=== PATIENT | male | born 1965 | race Caucasian/White ===

== ENCOUNTER 2018-05-05 13:12 | Outpatient (CLI) | payer BC ==
--- NOTE | 2018-05-05 15:25 | HP ---
HISTORY OF PRESENT ILLNESS: Mr. Juan M Lou is a very pleasant 53-year-old gentleman, who presents to [facility] for evaluation of multiple venous ulcerations of the right lower leg. The patient states that he has had venous ulcerations present on an intermittent basis for the past 2 to 3 years. He states that the ulcerations have mostly occurred over the right lower leg. He states that he believes the ulcerations were associated with beginning medication for hypertension. The patient states that usually he notes the presence of blisters, which pop and then developed eschars before healing completely. He states that the ulcerations now present have failed to improve over the past 3-1/2 weeks. He also reports copious drainage associated with the ulcerations. The patient reports the development of some of the ulcerations secondary to minor trauma while taking off his socks. The patient states he has been treating the ulcerations with the application of an antibiotic ointment followed by secondary dressings. The patient was referred to the [facility] by Dr. Rosales on 04/27/2018. PAST MEDICAL HISTORY: 1. Hypertension. 2. Atrial fibrillation. PAST SURGICAL HISTORY: 1. Gastric bypass in 2002. 2. Herniorrhaphy. 3. Upper extremity surgery in the . MEDICATIONS: 1. Eliquis. 2. Hydrochlorothiazide. 3. Losartan. 4. Coreg. ALLERGIES: NO KNOWN DIAGNOSED ALLERGIES. SOCIAL HISTORY: Social history significant for tobacco use on an intermittent basis for the past 40 years. The patient states he has smoked up to 1-1/2 packs of cigarettes per day over this period of time. The patient admits to only the occasional consumption of alcohol. FAMILY HISTORY: Family history is negative for diabetes mellitus or coronary artery disease. PHYSICAL EXAMINATION: VITAL SIGNS: Temperature 97.5, pulse 83, and blood pressure 169/95. GENERAL: A 53-year-old gentleman, sitting on table in examination room, in no acute distress. HEENT: Normocephalic, atraumatic. NECK: No nuchal rigidity. CHEST: Clear to auscultation. CARDIOVASCULAR: Regular rate and rhythm. ABDOMEN: Soft. EXTREMITIES: Multiple venous ulcerations are present over the right lower leg. No purulent drainage is associated with any of the wounds. No erythema of the skin surrounding any of the wounds is present. No maceration of the skin of the periwound of any of the wounds is noted. A dorsalis pedis pulse is easily palpable on the right. Edema of the right foot and lower leg is present on exam today. Hyperpigmentation of the skin of the right and left lower legs is present secondary to hemosiderin deposition. NEURO: Grossly nonfocal. ASSESSMENT AND PLAN: 1. Chronic venous hypertension with ulcers, Xeroform gauze, ABDs, and the 3M Coban 2 Layer Compression System will be applied to the ulcerations today. The patient is to return to the Wound Center in 1 week for a dressing change. I will see Mr. Lou again in 2 weeks. No antibiotics will be prescribed today based upon the appearance of the wounds. The patient states he will be seeing his applications developer, Dr. Sam Hoffman in the near future. The patient states he will discuss evaluation for venous ablation or iliac vein stenting with Dr. Hoffman at this time. The patient understands and is in agreement with the preceding treatment plan. He states he will return to the Wound Center in 2 weeks. 2. Hypertension. 3. Atrial fibrillation. Job ID: [id number]
[2018-05-05] MEDS ORDERED: Sodium Chloride 0.9% 15 ML NEB ONE (18:00)
== END 2018-05-05 13:13 | disposition home or self-care (01) ==
LOC: WCC 13:12
PROVIDERS: ATTEND Family Medicine
DX: I87.311 Chronic venous hypertension (idiopathic) with ulcer of right lower extremity (principal); L97.919 Non-pressure chronic ulcer of unspecified part of right lower leg with unspecified severity; I10 Essential (primary) hypertension; I48.91 Unspecified atrial fibrillation
CPT/HCPCS: 99203; A4218; G0463

== ENCOUNTER 2018-05-12 09:49 | Outpatient (CLI) | payer BC ==
[2018-05-12] MEDS ORDERED: Sodium Chloride 0.9% 15 ML NEB ONE (16:48)
== END 2018-05-12 09:50 | disposition home or self-care (01) ==
LOC: WCC 09:49
PROVIDERS: ATTEND Family Medicine
DX: I87.311 Chronic venous hypertension (idiopathic) with ulcer of right lower extremity (principal); L97.919 Non-pressure chronic ulcer of unspecified part of right lower leg with unspecified severity
CPT/HCPCS: 29581; A4218

== ENCOUNTER 2018-05-19 14:32 | Outpatient (CLI) | payer BC ==
[~2018-05-19 14:32] MED LIST: Sodium Chloride 0.9% 15 ML NEB ONE
--- NOTE | 2018-05-19 16:06 | PRG ---
DATE OF SERVICE: 05/19/2018 SUBJECTIVE: Mr. Juan M Lou is a very pleasant 53-year-old gentleman, who presents to the [facility] for evaluation of multiple venous ulcerations of the right lower leg. At the time of the patient's initial presentation to the [facility] Center, Mr. Lou stated that he has had venous ulcerations present on an intermittent basis for the past 2 to 3 years. He stated that the ulcerations mostly occurred over the right lower leg. He stated that he believed the ulcerations were associated with beginning medication for hypertension. He stated that he usually noted the presence of blisters which popped and then developed eschars before healing completely. He stated that the ulcerations with which he presented to the Wound Center had failed to improve over the previous 3-1/2 weeks. He also reported copious drainage associated with the ulcerations. The patient also reported the development of some of the ulcerations secondary to minor trauma while taking off his socks. The patient stated he had been treating the ulcerations with the application of an antibiotic ointment followed by secondary dressings prior to being seen in the Wound Center. The patient was referred to the Wound Center by Dr. Rosales on 04/27/2018. After being seen in the Wound Center, the ulcerations were treated with the application of Xeroform gauze, ABDs, and the 3M Coban 2 Layer Compression System. OBJECTIVE: VITAL SIGNS: Temperature 97.4, pulse 69, respirations 18, and blood pressure 169/79. EXTREMITIES: Multiple superficial venous ulcerations are present over the right lower leg. These ulcerations have markedly improved in their appearance since the patient's initial presentation to the Wound Center. No purulent drainage is associated with any of the wounds. No erythema of the skin surrounding any of the wounds is present. No maceration of the skin of the periwound of any of the wounds is noted. Less edema of the right foot and lower leg is present on exam today than at the time of the patient's initial presentation to the Wound Center. Hyperpigmentation of the skin of the right and left lower legs is present secondary to hemosiderin deposition. ASSESSMENT AND PLAN: 1. Chronic venous hypertension with ulcers. Xeroform gauze, [place], and the 3M Coban 2 Layer Compression System will be applied to the ulcerations today. I will see Mr. Helquist again in 1 week. Arrangements will be made for the home delivery of compression garments in conjunction with wraparound compression. The patient has been asked to bring both to his followup visit to the Wound Center in 1 week. The patient states he understands and is in agreement with the preceding treatment plan. 2. Hypertension. 3. Atrial fibrillation. Job ID: [id number]
== END 2018-05-19 14:33 | disposition home or self-care (01) ==
LOC: WCC 14:32
PROVIDERS: ATTEND Family Medicine
DX: I87.311 Chronic venous hypertension (idiopathic) with ulcer of right lower extremity (principal); L97.919 Non-pressure chronic ulcer of unspecified part of right lower leg with unspecified severity; I10 Essential (primary) hypertension; I48.91 Unspecified atrial fibrillation
CPT/HCPCS: 97602; A4218

== ENCOUNTER 2019-03-15 15:18 | Outpatient (CLI) | payer BC ==
--- NOTE | 2019-03-15 15:54 | RAD ---
LEFT KNEE 3 VIEWS: HISTORY: Pain in the left knee. FINDINGS: There are degenerative changes most prominent in the medial tibial femoral and patellofemoral compart ments. No fracture, dislocation, or bony destruction is seen. IMPRESSION: Left knee osteoarthritis. POS: [facility]
--- NOTE | 2019-03-15 15:55 | RAD ---
RIGHT KNEE 3 VIEWS: HISTORY: Right knee pain. FINDINGS: There are degenerative changes most prominent in the medial tibial femoral and patellofemoral compart ments. No fracture, dislocation, or bony destruction is seen. IMPRESSION: Right knee osteoarthritis. POS: [facility]
== END 2019-03-15 15:19 | disposition home or self-care (01) ==
LOC: BICRAD 15:18
PROVIDERS: ATTEND Family Medicine
DX: M25.561 Pain in right knee (principal); M25.562 Pain in left knee; M17.0 Bilateral primary osteoarthritis of knee

== ENCOUNTER 2021-03-28 12:40 | Emergency (ER) | payer BC ==
[2021-03-28 14:33] LABS: %Neutrophils 76.1 % (42.0-75.0); Hemoglobin 10.2 g/dL (14.0-18.0); Mean Corpuscular HGB CONC 31.3 g/dL (32.0-36.0); Mean Corpuscular Hemoglobin 31.7 pg (27.0-31.0); Mean Platelet Volume 8.3 fL (7.4-10.4); Platelet Count 214 thou/uL (130-400); RBC Distribution Width 17.7 % (11.5-14.5); Red Blood Cell (RBC) Count 3.23 mill/uL (4.70-6.10); White Blood Cell (WBC) Count 8.3 thou/uL (4.8-10.8)
[2021-03-28 14:34] LABS: #Eosinphils 0.1 thou/uL (0.0-0.7); #Lymphocytes 1.1 thou/uL (1.20-3.40); #Monocytes 0.8 thou/uL (0.11-0.59); #Neutrophils 6.3 thou/uL (1.40-6.50); %Basophils 0.1 % (0.0-1.0); %Eosinophils 0.9 % (0.0-10.0); %Lymphocytes 13.5 % (21.0-51.0); %Monocytes 9.3 % (0.0-10.0)
[2021-03-28 15:02] LABS: ALT (SGPT) 22 U/L (8-55); AST (SGOT) 35 U/L (5-34); Albumin 3.4 g/dL (3.5-5.0); Alkaline Phosphatase 75 U/L (40-110); Anion Gap 15 mmol/L (10-20); BUN (Urea Nitrogen) 10 mg/dL (8.4-25.7); Bilirubin, Total 1.4 mg/dL (0.2-1.2); Calc. Creatinine Clearance 0 mL/min (70-130); Calcium 8.8 mg/dL (7.8-10.44); Carbon Dioxide 29 mmol/L (22-29); Chloride 102 mmol/L (98-107); Globulin 3.4 g/dL (2.4-3.5); Glucose 114 mg/dL (70-105); Lipase 10 U/L (8-78); Potassium 4.7 mmol/L (3.5-5.1); Protein, Total 6.8 g/dL (6.0-8.3); Sodium 141 mmol/L (136-145)
== END 2021-03-28 18:59 | disposition home or self-care (01) ==
LOC: ERS 12:40
DX: R07.89 Other chest pain (principal); I10 Essential (primary) hypertension; I48.91 Unspecified atrial fibrillation; E66.9 Obesity, unspecified; Z87.891 Personal history of nicotine dependence
CPT/HCPCS: 36415; 71045; 80053; 83690; 83880; 84484; 85025; 93005; 94760

== ENCOUNTER 2021-08-19 20:42 | Inpatient (IN) | payer BC ==
[2021-08-19 21:21] LABS: Analyzer IN Cardio ER; Base Excess 3.5 mEq/L (-2.0 to +3.0); Calcium, Ionized (venous) 1.04 mmol/L (1.16-1.32); Chloride (VBG) 103 mmol/L (98-106); Potassium (VBG) 5.11 mmol/L (3.70-5.30); Sodium 141.8 mmol/L (133-146); pH (venous) 7.29 (7.32-7.43)
[2021-08-19 21:27] LABS: Actual Bicarbonate (HCO3v) 32 mEq/L (22-28)
[2021-08-19 21:31] LABS: Hemoglobin 13.3 g/dL (14.0-18.0); Mean Corpuscular HGB CONC 29.3 g/dL (32.0-36.0); Mean Corpuscular Hemoglobin 28.6 pg (27.0-31.0); Mean Corpuscular Volume 97.6 fL (78.0-98.0); Mean Platelet Volume 8.9 fL (7.4-10.4); Platelet Count 211 thou/uL (130-400); RBC Distribution Width 18.4 % (11.5-14.5); Red Blood Cell (RBC) Count 4.65 mill/uL (4.70-6.10); White Blood Cell (WBC) Count 6.1 thou/uL (4.8-10.8)
[2021-08-19 21:32] LABS: ALT (SGPT) 16 U/L (8-55); AST (SGOT) 28 U/L (5-34); Albumin 3.4 g/dL (3.5-5.0); Alkaline Phosphatase 88 U/L (40-110); Anion Gap 13 mmol/L (10-20); BUN (Urea Nitrogen) 21 mg/dL (8.4-25.7); Bilirubin, Total 1.3 mg/dL (0.2-1.2); CRP (Inflammatory) 6.66 mg/dL (= or < 0.5); Calc. Creatinine Clearance 0 mL/min (70-130); Carbon Dioxide 33 mmol/L (22-29); Chloride 103 mmol/L (98-107); Globulin 4.1 g/dL (2.4-3.5); Glucose 95 mg/dL (70-105); Potassium 4.4 mmol/L (3.5-5.1); Protein, Total 7.5 g/dL (6.0-8.3); Sodium 145 mmol/L (136-145)
[2021-08-19 21:33] LABS: Acetaminophen Less than 10.0 mcg/mL (10.0-30.0); Alcohol Less than 10 mg/dL (Less than 10); CK (CPK) 72 U/L (30-200); Salicylate Less than 8.0 mg/dL (15.0-30.0)
[2021-08-19 21:45] LABS: #Eosinphils 0.1 thou/uL (0.0-0.7); #Lymphocytes 0.9 thou/uL (1.20-3.40); #Monocytes 0.7 thou/uL (0.11-0.59); #Neutrophils 4.4 thou/uL (1.40-6.50); %Basophils 0.7 % (0.0-1.0); %Eosinophils 0.9 % (0.0-10.0); %Lymphocytes 14.4 % (21.0-51.0); %Monocytes 11.6 % (0.0-10.0); %Neutrophils 72.4 % (42.0-75.0)
[2021-08-19 22:26] LABS: SARS-CoV-2 NAA Rapid Test Not Detected (NotDetected)
[2021-08-19 22:38] LABS: Bacteria/HPF None Seen HPF (None Seen); Bilirubin 1+ (Negative); Blood, Urine Negative (Negative); Clarity Clear (Clear); Glucose, Urine (Dipstick) Normal (Negative); Ketone, Urine Negative (Negative); Leukocyte Negative Leu/uL (Negative); Nitrite Negative (Negative); Protein, Urine (Dipstick) 100 mg/dL (Neg-Trace); RBC/HPF 0-3 HPF (0-3); Specific Gravity, Urine 1.034 (1.002-1.036); Squamous Epithelial 0-3 HPF (0-3); WBC/HPF 0-3 HPF (0-3)
[2021-08-19 22:45] LABS: Amphetamine Not Detected (NotDetected); Barbiturates Screen Not Detected (NotDetected); Benzodiazepine Screen Not Detected (NotDetected); Cocaine Metabolite Screen Not Detected (NotDetected); Methadone Not Detected (NotDetected); Methamphetamine Not Detected (NotDetected); Opiate Screen Not Detected (NotDetected); Oxycodone Screen Not Detected (NotDetected); Phencyclidine (PCP) Not Detected (NotDetected); THC/Cannabinoid Screen Not Detected (NotDetected); Tricyclic Screen Not Detected (NotDetected)
[2021-08-20 14:58] LABS: Actual Bicarbonate (HCO3a) 36.1 mEq/L (22-28); Analyzer IN Cardio ER; Base Excess (BEa) 5.4 mEq/L (-2.0 to +3.0); Calcium, Ionized (arterial) 1.19 mmol/L (1.12-1.30); Carboxyhemoglobin (COHb) 1.2 gm% (0.0-3.0); Hemoglobin (Hb) 12.8 g/dL (14.0-18.0); O2 Tension (PaO2), arterial 73.8 mmHg (80.0-100.0); Potassium - ABG Lab 4.09 mmol/L (3.70-5.30)
[2021-08-20 14:59] LABS: ALV-art Gradient 97.775 mmHg (0-20); CO2 Tension 90.9 mmHg (35.0-45.0); Puncture Site RRA; pH, Arterial 7.22 (7.35-7.45)
[2021-08-20] MEDS ORDERED: Azithromycin 500 MG in Sodium Chloride 0.9% 250 ML 250 ML IVPB SCH (15:00)
[2021-08-20 15:43] LABS: Mean Corpuscular HGB CONC 27.9 g/dL (32.0-36.0); Mean Corpuscular Hemoglobin 27.5 pg (27.0-31.0); Mean Corpuscular Volume 98.5 fL (78.0-98.0); Mean Platelet Volume 8.9 fL (7.4-10.4); Platelet Count 184 thou/uL (130-400); RBC Distribution Width 18.1 % (11.5-14.5); Red Blood Cell (RBC) Count 4.36 mill/uL (4.70-6.10); White Blood Cell (WBC) Count 7.3 thou/uL (4.8-10.8)
[2021-08-20] MEDS ORDERED: cefTRIAXone\\ROCEPHIN 2 GM in Sodium Chloride 0.9% 100 ML IVPB SCH (16:00)
[2021-08-20 16:03] LABS: Anisocytosis SLIGHT = 6-15 cells (100X) (0-5/hpf); Band 13 % (5-11); Eosinophils 1 % (0-10); Hypochromia SLIGHT = 6-15 cells (100X) (0-5/hpf); Lymphocytes 10 % (21-51); MDiff Complete? YES; Monocytes 12 % (0-10); Neutrophil 64 % (42-75); Platelet Morphology Comment Appears Adequate; Polychromasia SLIGHT = 2-3 cells (100X) (0-2/hpf)
[2021-08-20] MEDS ORDERED: Bisacodyl 10 MG SUPP PR PRN (16:15)
[2021-08-20] MEDS ORDERED: Ondansetron ODT 4 MG TAB PO PRN (16:15)
[2021-08-20] MEDS ORDERED: Senokot S 8.6-50 MG TAB PO PRN (16:15)
[2021-08-20] MEDS ORDERED: Bisacodyl 5 MG TAB PO PRN (16:15)
[2021-08-20] MEDS ORDERED: Acetaminophen 325 MG TAB PO PRN (16:15)
[2021-08-20] MEDS ORDERED: Ondansetron PF 4 MG/2 ML Vial IVP PRN (16:15)
[2021-08-20 18:38] LABS: Hemoglobin A1c 5.9 % (4.0-6.0)
[2021-08-20] MEDS ORDERED: Furosemide 40 MG/4 ML VIAL SLOW IVP SCH (18:45)
[2021-08-20] MEDS ORDERED: Azithromycin 500 MG VIAL ONE ×2 (20:35→20:36)
[2021-08-20] MEDS ORDERED: cefTRIAXone\\ROCEPHIN 2 GM VIAL ONE (20:35)
[2021-08-20] MEDS ORDERED: Furosemide 40 MG/4 ML VIAL ONE (20:35)
[2021-08-20] MEDS ORDERED: Cefepime 2 GM VIAL ONE (20:35)
[2021-08-20] MEDS ORDERED: Apixaban 5 MG TAB PO SCH (21:00)
[2021-08-20] MEDS ORDERED: Vancomycin 1 GM in Premix Bag 1 BAG IVPB SCH (21:00)
[2021-08-20] MEDS: Cefepime 2 GM in Sodium Chloride 0.9% 100 ML IVPB SCH (21:35)
[2021-08-20] MEDS: Famotidine/PF 20 mg/2ml Vial SLOW IVP SCH (22:32)
[2021-08-20] MEDS: Famotidine 20 MG TAB PO SCH (22:56)
[2021-08-20 23:12] LABS: #Eosinphils 0.1 thou/uL (0.0-0.7); #Lymphocytes 0.6 thou/uL (1.20-3.40); #Monocytes 0.6 thou/uL (0.11-0.59); #Neutrophils 3.9 thou/uL (1.40-6.50); %Basophils 0.8 % (0.0-1.0); %Eosinophils 1.6 % (0.0-10.0); %Lymphocytes 10.9 % (21.0-51.0); %Monocytes 11.4 % (0.0-10.0); %Neutrophils 75.3 % (42.0-75.0); Hemoglobin 11.9 g/dL (14.0-18.0); Mean Corpuscular HGB CONC 28.4 g/dL (32.0-36.0); Mean Corpuscular Hemoglobin 27.9 pg (27.0-31.0); Mean Corpuscular Volume 98.5 fL (78.0-98.0); Mean Platelet Volume 9.1 fL (7.4-10.4); Platelet Count 206 thou/uL (130-400); RBC Distribution Width 18.3 % (11.5-14.5); Red Blood Cell (RBC) Count 4.26 mill/uL (4.70-6.10); White Blood Cell (WBC) Count 5.1 thou/uL (4.8-10.8)
[2021-08-20 23:34] LABS: ALT (SGPT) 18 U/L (8-55); AST (SGOT) 50 U/L (5-34); Alkaline Phosphatase 82 U/L (40-110); Anion Gap 13 mmol/L (10-20); BUN (Urea Nitrogen) 17 mg/dL (8.4-25.7); Calc. Creatinine Clearance 0 mL/min (70-130); Calcium 8.8 mg/dL (7.8-10.44); Carbon Dioxide 35 mmol/L (22-29); Chloride 101 mmol/L (98-107); Glucose 100 mg/dL (70-105); Sodium 144 mmol/L (136-145)
[2021-08-21] MEDS ORDERED: Vancomycin 1 GM in Premix Bag 1 BAG IVPB SCH (00:30)
[2021-08-21] MEDS: Cefepime 2 GM in Sodium Chloride 0.9% 100 ML IVPB SCH ×3 (04:25→20:34)
[2021-08-21 05:02] LABS: ALT (SGPT) 12 U/L (8-55); AST (SGOT) 22 U/L (5-34); Alkaline Phosphatase 78 U/L (40-110); Anion Gap 12 mmol/L (10-20); BUN (Urea Nitrogen) 15 mg/dL (8.4-25.7); Bilirubin, Direct 0.6 mg/dL (0.1-0.3); Bilirubin, Total 0.9 mg/dL (0.2-1.2); CRP (Inflammatory) 7.05 mg/dL (= or < 0.5); Calc. Creatinine Clearance 437 mL/min (70-130); Calcium 8.5 mg/dL (7.8-10.44); Carbon Dioxide 37 mmol/L (22-29); Chloride 102 mmol/L (98-107); Cholesterol 84 mg/dl (< 200 Desired); Glucose 114 mg/dL (70-105); HDL Cholesterol 28 mg/dL (>60 Neg Risk); LDL Cholesterol, Calculated 43 mg/dL; Magnesium 1.7 mg/dL (1.6-2.6); Potassium 3.9 mmol/L (3.5-5.1); Protein, Total 6.8 g/dL (6.0-8.3); Sodium 147 mmol/L (136-145); Triglycerides 65 mg/dL (Less than 150)
[2021-08-21 05:10] LABS: #Eosinphils 0.1 thou/uL (0.0-0.7); #Lymphocytes 0.5 thou/uL (1.20-3.40); #Monocytes 0.8 thou/uL (0.11-0.59); #Neutrophils 4.6 thou/uL (1.40-6.50); %Basophils 0.5 % (0.0-1.0); %Eosinophils 0.9 % (0.0-10.0); %Lymphocytes 8.9 % (21.0-51.0); %Monocytes 13.1 % (0.0-10.0); %Neutrophils 76.6 % (42.0-75.0); Hemoglobin 11.4 g/dL (14.0-18.0); Mean Corpuscular HGB CONC 28.5 g/dL (32.0-36.0); Mean Corpuscular Hemoglobin 28.3 pg (27.0-31.0); Mean Corpuscular Volume 99.2 fL (78.0-98.0); Mean Platelet Volume 9.1 fL (7.4-10.4); Platelet Count 190 thou/uL (130-400); Red Blood Cell (RBC) Count 4.02 mill/uL (4.70-6.10); White Blood Cell (WBC) Count 6.1 thou/uL (4.8-10.8)
[2021-08-21] MEDS: Furosemide 40 MG/4 ML VIAL SLOW IVP SCH ×2 (06:30→14:38)
[2021-08-21] MEDS: Famotidine 20 MG TAB PO SCH ×2 (08:44→20:34)
[2021-08-21] MEDS: Famotidine/PF 20 mg/2ml Vial SLOW IVP SCH ×2 (08:51→20:35)
[2021-08-21] MEDS ORDERED: Enoxaparin Sodium 40 MG/0.4 ML SYRINGE SC SCH (09:00)
[2021-08-21] MEDS: VANCOMYCIN 2 GRAM/500 ML BAG 2 GM in Premix Bag 1 BAG IVPB SCH ×2 (09:40→16:55)
[2021-08-21 09:54] LABS: Actual Bicarbonate (HCO3a) 41.2 mEq/L (22-28); Calcium, Ionized (arterial) 1.18 mmol/L (1.12-1.30); Carboxyhemoglobin (COHb) 1.5 gm% (0.0-3.0); Hemoglobin (Hb) 12.4 g/dL (14.0-18.0); O2 Tension (PaO2), arterial 66.1 mmHg (80.0-100.0); Potassium - ABG Lab 3.71 mmol/L (3.70-5.30); pH, Arterial 7.32 (7.35-7.45)
[2021-08-21 10:00] LABS: CO2 Tension 81.1 mmHg (35.0-45.0); Puncture Site LRA
[2021-08-21 10:02] LABS: ALV-art Gradient 32.165 mmHg (0-20)
[2021-08-21] MEDS: Apixaban 5 MG TAB PO SCH (20:35)
[2021-08-21] MEDS: Aquaphor 3.5 oz (99 G) JAR TOP SCH (20:39)
[2021-08-21] MEDS ORDERED: Azithromycin 500 MG in Sodium Chloride 0.9% 250 ML 250 ML IVPB SCH (22:00)
[2021-08-22 00:29] LABS: Vancomycin, Trough 25.3 ug/mL
[2021-08-22] MEDS: Cefepime 2 GM in Sodium Chloride 0.9% 100 ML IVPB SCH (04:22)
[2021-08-22] MEDS: Furosemide 40 MG/4 ML VIAL SLOW IVP SCH ×2 (04:59→14:27)
[2021-08-22] MEDS ORDERED: VANCOMYCIN 2 GRAM/500 ML BAG 2 GM in Premix Bag 1 BAG IVPB SCH ×2 (05:00→09:00)
[2021-08-22 05:07] LABS: BUN (Urea Nitrogen) 16 mg/dL (8.4-25.7); Calc. Creatinine Clearance 416 mL/min (70-130); Calcium 8.7 mg/dL (7.8-10.44); Glucose 94 mg/dL (70-105); Magnesium 1.6 mg/dL (1.6-2.6)
[2021-08-22 05:12] LABS: #Lymphocytes 0.6 thou/uL (1.20-3.40); #Monocytes 0.7 thou/uL (0.11-0.59); #Neutrophils 3.5 thou/uL (1.40-6.50); %Eosinophils 0.9 % (0.0-10.0); %Lymphocytes 12.7 % (21.0-51.0); %Monocytes 13.7 % (0.0-10.0); %Neutrophils 72.7 % (42.0-75.0); Hemoglobin 11.5 g/dL (14.0-18.0); MDiff Complete? YES; Mean Corpuscular HGB CONC 27.8 g/dL (32.0-36.0); Mean Corpuscular Hemoglobin 27.5 pg (27.0-31.0); Mean Corpuscular Volume 99.2 fL (78.0-98.0); Mean Platelet Volume 9.1 fL (7.4-10.4); Platelet Count 185 thou/uL (130-400); RBC Distribution Width 18.2 % (11.5-14.5); Red Blood Cell (RBC) Count 4.18 mill/uL (4.70-6.10); White Blood Cell (WBC) Count 4.8 thou/uL (4.8-10.8)
[2021-08-22 05:13] LABS: Platelet Morphology Comment Appears Adequate; Stomatocytes SLIGHT = 2-5 cells (100X) (0-1/hpf)
[2021-08-22 05:16] LABS: Anion Gap 11 mmol/L (10-20); Carbon Dioxide 40 mmol/L (22-29); Chloride 99 mmol/L (98-107); Potassium 3.7 mmol/L (3.5-5.1); Sodium 146 mmol/L (136-145)
[2021-08-22] MEDS: Aquaphor 3.5 oz (99 G) JAR TOP SCH ×2 (08:38→20:58)
[2021-08-22] MEDS: Calamine/Zinc Oxide 177 ML LOTION TP SCH (08:38)
[2021-08-22] MEDS: Apixaban 5 MG TAB PO SCH ×2 (08:38→20:57)
[2021-08-22] MEDS: Famotidine 20 MG TAB PO SCH ×2 (08:39→20:57)
[2021-08-22] MEDS: Famotidine/PF 20 mg/2ml Vial SLOW IVP SCH ×2 (08:39→20:57)
[2021-08-22 09:16] LABS: Base Excess 13.6 mEq/L (-2.0 to +3.0); Chloride (VBG) 98 mmol/L (98-106); Hemoglobin (Hb) 12.7 g/dL (13.1-17.2); Sodium 143.8 mmol/L (133-146); pH (venous) 7.32 (7.32-7.43)
[2021-08-22 09:20] LABS: Actual Bicarbonate (HCO3v) 44 mEq/L (22-28)
[2021-08-22] MEDS: cefTRIAXone\\ROCEPHIN 1 GM in Sodium Chloride 0.9% 100 ML IVPB SCH (11:12)
[2021-08-23 04:45] LABS: #Eosinphils 0.1 thou/uL (0.0-0.7); #Lymphocytes 0.7 thou/uL (1.20-3.40); #Monocytes 0.6 thou/uL (0.11-0.59); #Neutrophils 3.3 thou/uL (1.40-6.50); %Basophils 0.1 % (0.0-1.0); %Eosinophils 2.1 % (0.0-10.0); %Lymphocytes 14.1 % (21.0-51.0); %Monocytes 13.2 % (0.0-10.0); %Neutrophils 70.6 % (42.0-75.0); Hemoglobin 11.6 g/dL (14.0-18.0); Mean Corpuscular HGB CONC 28.7 g/dL (32.0-36.0); Mean Corpuscular Hemoglobin 28.3 pg (27.0-31.0); Mean Corpuscular Volume 98.6 fL (78.0-98.0); Mean Platelet Volume 9.4 fL (7.4-10.4); Platelet Count 180 thou/uL (130-400); RBC Distribution Width 18.2 % (11.5-14.5); Red Blood Cell (RBC) Count 4.12 mill/uL (4.70-6.10); White Blood Cell (WBC) Count 4.6 thou/uL (4.8-10.8)
[2021-08-23 05:07] LABS: BUN (Urea Nitrogen) 15 mg/dL (8.4-25.7); Calc. Creatinine Clearance 452 mL/min (70-130); Calcium 8.8 mg/dL (7.8-10.44); Glucose 86 mg/dL (70-105); Magnesium 1.4 mg/dL (1.6-2.6)
[2021-08-23 05:16] LABS: Anion Gap 14 mmol/L (10-20); Carbon Dioxide 40 mmol/L (22-29); Chloride 93 mmol/L (98-107); Potassium 3.4 mmol/L (3.5-5.1); Sodium 144 mmol/L (136-145)
[2021-08-23] MEDS: Furosemide 40 MG/4 ML VIAL SLOW IVP SCH ×2 (05:17→14:37)
[2021-08-23] MEDS ORDERED: Magnesium 2 GM/50 ML(in water) 2 GM in Premix Bag 1 BAG IVPB SCH (08:30)
[2021-08-23] MEDS: Apixaban 5 MG TAB PO SCH ×2 (09:07→20:34)
[2021-08-23] MEDS: Famotidine 20 MG TAB PO SCH ×2 (09:07→20:34)
[2021-08-23] MEDS: Aquaphor 3.5 oz (99 G) JAR TOP SCH ×2 (09:08→20:35)
[2021-08-23] MEDS: Calamine/Zinc Oxide 177 ML LOTION TP SCH (09:08)
[2021-08-23] MEDS: Famotidine/PF 20 mg/2ml Vial SLOW IVP SCH ×2 (09:09→20:35)
[2021-08-23] MEDS: Potassium Chloride 20 MEQ in Premix Bag 1 BAG IVPB SCH ×2 (09:12→13:41)
[2021-08-23] MEDS: cefTRIAXone\\ROCEPHIN 1 GM in Sodium Chloride 0.9% 100 ML IVPB SCH (13:41)
[2021-08-24 05:08] LABS: BUN (Urea Nitrogen) 14 mg/dL (8.4-25.7); Calc. Creatinine Clearance 460 mL/min (70-130); Calcium 8.7 mg/dL (7.8-10.44); Glucose 89 mg/dL (70-105); Magnesium 1.4 mg/dL (1.6-2.6)
[2021-08-24 05:14] LABS: Band 10 % (5-11); Eosinophils 1 % (0-10); Hemoglobin 11.9 g/dL (14.0-18.0); Hypochromia SLIGHT = 6-15 cells (100X) (0-5/hpf); Lymphocytes 19 % (21-51); MDiff Complete? YES; Mean Corpuscular HGB CONC 28.4 g/dL (32.0-36.0); Mean Corpuscular Hemoglobin 27.9 pg (27.0-31.0); Mean Corpuscular Volume 98.4 fL (78.0-98.0); Mean Platelet Volume 9.3 fL (7.4-10.4); Monocytes 13 % (0-10); Neutrophil 57 % (42-75); Platelet Count 184 thou/uL (130-400); Platelet Morphology Comment Appears Adequate; Red Blood Cell (RBC) Count 4.28 mill/uL (4.70-6.10); White Blood Cell (WBC) Count 4.8 thou/uL (4.8-10.8)
[2021-08-24 05:17] LABS: Anion Gap 16 mmol/L (10-20); Chloride 89 mmol/L (98-107); Potassium 3.4 mmol/L (3.5-5.1); Sodium 144 mmol/L (136-145)
[2021-08-24 05:20] LABS: Carbon Dioxide 42 mmol/L (22-29)
[2021-08-24] MEDS: Aquaphor 3.5 oz (99 G) JAR TOP SCH ×2 (09:20→20:05)
[2021-08-24] MEDS: Famotidine 20 MG TAB PO SCH ×2 (09:20→20:05)
[2021-08-24] MEDS: Apixaban 5 MG TAB PO SCH ×2 (09:20→20:05)
[2021-08-24] MEDS: Calamine/Zinc Oxide 177 ML LOTION TP SCH (09:20)
[2021-08-24] MEDS: Furosemide 40 MG/4 ML VIAL SLOW IVP SCH (09:20)
[2021-08-24] MEDS: Famotidine/PF 20 mg/2ml Vial SLOW IVP SCH (09:21)
[2021-08-24] MEDS ORDERED: Magnesium 2 GM/50 ML(in water) 2 GM in Premix Bag 1 BAG IVPB SCH (11:00)
[2021-08-24] MEDS: cefTRIAXone\\ROCEPHIN 1 GM in Sodium Chloride 0.9% 100 ML IVPB SCH (11:45)
[2021-08-25 04:41] LABS: #Eosinphils 0.1 thou/uL (0.0-0.7); #Lymphocytes 0.7 thou/uL (1.20-3.40); #Monocytes 0.7 thou/uL (0.11-0.59); #Neutrophils 3.2 thou/uL (1.40-6.50); %Basophils 0.9 % (0.0-1.0); %Lymphocytes 15.2 % (21.0-51.0); %Monocytes 14.7 % (0.0-10.0); %Neutrophils 67.2 % (42.0-75.0); Mean Corpuscular HGB CONC 27.7 g/dL (32.0-36.0); Mean Corpuscular Hemoglobin 27.5 pg (27.0-31.0); Mean Corpuscular Volume 99.4 fL (78.0-98.0); Mean Platelet Volume 8.9 fL (7.4-10.4); Platelet Count 184 thou/uL (130-400); Red Blood Cell (RBC) Count 4.38 mill/uL (4.70-6.10); White Blood Cell (WBC) Count 4.8 thou/uL (4.8-10.8)
[2021-08-25 04:50] LABS: BUN (Urea Nitrogen) 14 mg/dL (8.4-25.7); Calc. Creatinine Clearance 498 mL/min (70-130); Calcium 8.8 mg/dL (7.8-10.44); Glucose 104 mg/dL (70-105); Magnesium 1.7 mg/dL (1.6-2.6)
[2021-08-25 04:59] LABS: Anion Gap 18 mmol/L (10-20); Chloride 87 mmol/L (98-107); Potassium 3.5 mmol/L (3.5-5.1); Sodium 145 mmol/L (136-145)
[2021-08-25 05:02] LABS: Carbon Dioxide 44 mmol/L (22-29)
[2021-08-25] MEDS: Furosemide 40 MG/4 ML VIAL SLOW IVP SCH (09:25)
[2021-08-25] MEDS: Calamine/Zinc Oxide 177 ML LOTION TP SCH (09:26)
[2021-08-25] MEDS: Aquaphor 3.5 oz (99 G) JAR TOP SCH ×2 (09:26→21:04)
[2021-08-25] MEDS: Apixaban 5 MG TAB PO SCH ×2 (09:26→21:01)
[2021-08-25] MEDS: Famotidine 20 MG TAB PO SCH ×2 (09:26→21:01)
[2021-08-25] MEDS ORDERED: AcetaZOLAMIDE 250 MG TAB PO SCH (09:30)
[2021-08-25] MEDS: cefTRIAXone\\ROCEPHIN 1 GM in Sodium Chloride 0.9% 100 ML IVPB SCH (12:01)
[2021-08-26 05:00] LABS: Band 8 % (5-11); Eosinophils 1 % (0-10); Hemoglobin 11.5 g/dL (14.0-18.0); Hypochromia SLIGHT = 6-15 cells (100X) (0-5/hpf); Lymphocytes 8 % (21-51); MDiff Complete? YES; Mean Corpuscular HGB CONC 27.7 g/dL (32.0-36.0); Mean Corpuscular Hemoglobin 28.1 pg (27.0-31.0); Mean Platelet Volume 9.4 fL (7.4-10.4); Monocytes 13 % (0-10); Neutrophil 70 % (42-75); Platelet Count 173 thou/uL (130-400); Platelet Morphology Comment Appears Adequate; RBC Distribution Width 18.1 % (11.5-14.5); Red Blood Cell (RBC) Count 4.09 mill/uL (4.70-6.10); White Blood Cell (WBC) Count 4.4 thou/uL (4.8-10.8)
[2021-08-26 05:26] LABS: BUN (Urea Nitrogen) 16 mg/dL (8.4-25.7); Calc. Creatinine Clearance 446 mL/min (70-130); Calcium 9.3 mg/dL (7.8-10.44); Glucose 100 mg/dL (70-105); Magnesium 1.8 mg/dL (1.6-2.6)
[2021-08-26 05:35] LABS: Anion Gap 14 mmol/L (10-20); Chloride 87 mmol/L (98-107); Potassium 3.4 mmol/L (3.5-5.1); Sodium 144 mmol/L (136-145)
[2021-08-26 05:36] LABS: Carbon Dioxide Greater than 37 mmol/L (22-29)
[2021-08-26] MEDS: Apixaban 5 MG TAB PO SCH ×2 (09:22→20:08)
[2021-08-26] MEDS: Famotidine 20 MG TAB PO SCH ×2 (09:22→20:08)
[2021-08-26] MEDS: Furosemide 40 MG/4 ML VIAL SLOW IVP SCH (09:22)
[2021-08-26] MEDS: Calamine/Zinc Oxide 177 ML LOTION TP SCH (09:22)
[2021-08-26] MEDS: Aquaphor 3.5 oz (99 G) JAR TOP SCH ×2 (09:22→20:13)
[2021-08-26] MEDS: AcetaZOLAMIDE 250 MG TAB PO SCH (09:22)
[2021-08-26] MEDS: cefTRIAXone\\ROCEPHIN 1 GM in Sodium Chloride 0.9% 100 ML IVPB SCH (11:53)
[2021-08-27 04:53] LABS: #Eosinphils 0.1 thou/uL (0.0-0.7); #Lymphocytes 0.7 thou/uL (1.20-3.40); #Monocytes 0.5 thou/uL (0.11-0.59); #Neutrophils 3.3 thou/uL (1.40-6.50); %Basophils 0.4 % (0.0-1.0); %Eosinophils 2.2 % (0.0-10.0); %Lymphocytes 15.5 % (21.0-51.0); %Monocytes 11.4 % (0.0-10.0); %Neutrophils 70.5 % (42.0-75.0); Mean Corpuscular HGB CONC 27.6 g/dL (32.0-36.0); Mean Corpuscular Hemoglobin 27.8 pg (27.0-31.0); Mean Platelet Volume 9.5 fL (7.4-10.4); Platelet Count 164 thou/uL (130-400); RBC Distribution Width 17.9 % (11.5-14.5); Red Blood Cell (RBC) Count 3.95 mill/uL (4.70-6.10); White Blood Cell (WBC) Count 4.6 thou/uL (4.8-10.8)
[2021-08-27 05:11] LABS: BUN (Urea Nitrogen) 15 mg/dL (8.4-25.7); Calc. Creatinine Clearance 453 mL/min (70-130); Glucose 125 mg/dL (70-105); Magnesium 1.8 mg/dL (1.6-2.6)
[2021-08-27 05:21] LABS: Anion Gap 14 mmol/L (10-20); Chloride 89 mmol/L (98-107); Potassium 3.5 mmol/L (3.5-5.1); Sodium 144 mmol/L (136-145)
[2021-08-27 05:24] LABS: Carbon Dioxide 45 mmol/L (22-29)
[2021-08-27] MEDS ORDERED: Apixaban 5 MG TAB PO SCH (09:00)
[2021-08-27] MEDS: Famotidine 20 MG TAB PO SCH ×2 (09:17→20:26)
[2021-08-27] MEDS: AcetaZOLAMIDE 250 MG TAB PO SCH (09:17)
[2021-08-27] MEDS: Apixaban 5 MG TAB PO SCH ×2 (09:17→20:26)
[2021-08-27] MEDS: Furosemide 40 MG/4 ML VIAL SLOW IVP SCH (09:17)
[2021-08-27] MEDS: Calamine/Zinc Oxide 177 ML LOTION TP SCH (09:22)
[2021-08-27] MEDS: Aquaphor 3.5 oz (99 G) JAR TOP SCH ×2 (09:22→20:27)
[2021-08-27] MEDS: cefTRIAXone\\ROCEPHIN 1 GM in Sodium Chloride 0.9% 100 ML IVPB SCH (11:25)
[2021-08-27] MEDS: Cephalexin 250 MG CAP PO SCH (20:26)
[2021-08-28] MEDS: Cephalexin 250 MG CAP PO SCH ×2 (10:09→20:27)
[2021-08-28] MEDS: Apixaban 5 MG TAB PO SCH ×2 (10:09→20:26)
[2021-08-28] MEDS: Famotidine 20 MG TAB PO SCH ×2 (10:09→20:26)
[2021-08-28] MEDS: AcetaZOLAMIDE 250 MG TAB PO SCH (10:09)
[2021-08-28] MEDS: Furosemide 40 MG/4 ML VIAL SLOW IVP SCH (10:10)
[2021-08-28] MEDS: Calamine/Zinc Oxide 177 ML LOTION TP SCH (10:10)
[2021-08-28] MEDS: Aquaphor 3.5 oz (99 G) JAR TOP SCH ×2 (10:10→20:28)
[2021-08-29] MEDS: AcetaZOLAMIDE 250 MG TAB PO SCH (08:45)
[2021-08-29] MEDS: Famotidine 20 MG TAB PO SCH ×2 (08:45→21:05)
[2021-08-29] MEDS: Cephalexin 250 MG CAP PO SCH ×2 (08:45→21:05)
[2021-08-29] MEDS: Aquaphor 3.5 oz (99 G) JAR TOP SCH ×2 (08:46→21:06)
[2021-08-29] MEDS: Furosemide 40 MG/4 ML VIAL SLOW IVP SCH (08:46)
[2021-08-29] MEDS: Apixaban 5 MG TAB PO SCH ×2 (08:46→21:05)
[2021-08-29] MEDS: Calamine/Zinc Oxide 177 ML LOTION TP SCH (08:46)
[2021-08-29 12:50] VITALS: BMI 66.9
[2021-08-30] MEDS: AcetaZOLAMIDE 250 MG TAB PO SCH (09:16)
[2021-08-30] MEDS: Cephalexin 250 MG CAP PO SCH ×2 (09:17→21:11)
[2021-08-30] MEDS: Apixaban 5 MG TAB PO SCH ×2 (09:17→21:11)
[2021-08-30] MEDS: Famotidine 20 MG TAB PO SCH ×2 (09:17→21:11)
[2021-08-30] MEDS: Calamine/Zinc Oxide 177 ML LOTION TP SCH (09:17)
[2021-08-30] MEDS: Furosemide 40 MG/4 ML VIAL SLOW IVP SCH (09:17)
[2021-08-30] MEDS: Aquaphor 3.5 oz (99 G) JAR TOP SCH ×2 (09:17→21:13)
[2021-08-30] MEDS ORDERED: Polyethylene Glycol 3350 17 GM Packet PO PRN (11:28)
[2021-08-30] MEDS ORDERED: Docusate 100 MG CAP PO PRN (11:28)
[2021-08-31 04:50] LABS: BUN (Urea Nitrogen) 17 mg/dL (8.4-25.7); Calc. Creatinine Clearance 430 mL/min (70-130); Calcium 9.3 mg/dL (7.8-10.44); Estimated GFR 111; Glucose 102 mg/dL (70-105)
[2021-08-31 04:59] LABS: Chloride 94 mmol/L (98-107); Potassium 3.6 mmol/L (3.5-5.1); Sodium 142 mmol/L (136-145)
[2021-08-31 05:00] LABS: Anion Gap 13 mmol/L (10-20); Carbon Dioxide 39 mmol/L (22-29)
[2021-08-31] MEDS: Famotidine 20 MG TAB PO SCH ×2 (07:52→20:57)
[2021-08-31] MEDS: Aquaphor 3.5 oz (99 G) JAR TOP SCH ×2 (07:52→20:59)
[2021-08-31] MEDS: Apixaban 5 MG TAB PO SCH ×2 (07:52→20:57)
[2021-08-31] MEDS: Cephalexin 250 MG CAP PO SCH ×2 (07:52→20:57)
[2021-08-31] MEDS: Calamine/Zinc Oxide 177 ML LOTION TP SCH (07:53)
[2021-09-01] MEDS: Apixaban 5 MG TAB PO SCH ×2 (07:50→20:58)
[2021-09-01] MEDS: Famotidine 20 MG TAB PO SCH ×2 (07:50→20:57)
[2021-09-01] MEDS: Aquaphor 3.5 oz (99 G) JAR TOP SCH ×2 (07:51→20:58)
[2021-09-01] MEDS: Calamine/Zinc Oxide 177 ML LOTION TP SCH (07:51)
[2021-09-02] MEDS: Aquaphor 3.5 oz (99 G) JAR TOP SCH ×2 (09:02→21:02)
[2021-09-02] MEDS: Apixaban 5 MG TAB PO SCH ×2 (09:02→21:01)
[2021-09-02] MEDS: Famotidine 20 MG TAB PO SCH ×2 (09:02→21:01)
[2021-09-02] MEDS: Calamine/Zinc Oxide 177 ML LOTION TP SCH (09:03)
[2021-09-03] MEDS: Aquaphor 3.5 oz (99 G) JAR TOP SCH ×2 (08:28→20:15)
[2021-09-03] MEDS: Apixaban 5 MG TAB PO SCH ×2 (08:28→20:15)
[2021-09-03] MEDS: Calamine/Zinc Oxide 177 ML LOTION TP SCH (08:28)
[2021-09-03] MEDS: Famotidine 20 MG TAB PO SCH ×2 (08:28→20:15)
[2021-09-03 13:55] VITALS: BP 132/82
[2021-09-04 05:38] LABS: Hemoglobin 11.2 g/dL (14.0-18.0); Mean Corpuscular Hemoglobin 28.6 pg (27.0-31.0); Mean Corpuscular Volume 98.6 fL (78.0-98.0); Mean Platelet Volume 10.1 fL (7.4-10.4); Platelet Count 162 thou/uL (130-400); RBC Distribution Width 18.8 % (11.5-14.5); Red Blood Cell (RBC) Count 3.94 mill/uL (4.70-6.10); White Blood Cell (WBC) Count 4.2 thou/uL (4.8-10.8)
[2021-09-04 05:45] LABS: BUN (Urea Nitrogen) 18 mg/dL (8.4-25.7); Calc. Creatinine Clearance 443 mL/min (70-130); Calcium 9.5 mg/dL (7.8-10.44); Estimated GFR 112; Glucose 99 mg/dL (70-105)
[2021-09-04 05:55] LABS: Anion Gap 15 mmol/L (10-20); Carbon Dioxide 37 mmol/L (22-29); Chloride 95 mmol/L (98-107); Potassium 4.4 mmol/L (3.5-5.1); Sodium 143 mmol/L (136-145)
[2021-09-04] MEDS: Aquaphor 3.5 oz (99 G) JAR TOP SCH (07:36)
[2021-09-04] MEDS: Famotidine 20 MG TAB PO SCH (07:36)
[2021-09-04] MEDS: Apixaban 5 MG TAB PO SCH (07:36)
[2021-09-04] MEDS: Calamine/Zinc Oxide 177 ML LOTION TP SCH (07:36)
[2021-09-04 08:08] VITALS: TEMP 98.3
== END 2021-09-04 08:55 | disposition short-term general hospital (02) | DRG 189 ==
LOC: ERS 20:42 → ERHOLD 08-20 16:05 → IMCU/EMU 08-20 21:56
PROVIDERS: ADMIT Family Medicine; ATTEND Internal Medicine
PROC: 5A09557 Assistance with Respiratory Ventilation, Greater than 96 Consecutive Hours, Continuous Positive Airway Pressure (ICD-10-PCS; principal; 2021-08-20)
DX: J96.21 Acute and chronic respiratory failure with hypoxia (principal); L03.115 Cellulitis of right lower limb; L03.116 Cellulitis of left lower limb; E66.2 Morbid (severe) obesity with alveolar hypoventilation; Z68.45 Body mass index [BMI] 70 or greater, adult; E87.3 Alkalosis; R45.851 Suicidal ideations; J96.22 Acute and chronic respiratory failure with hypercapnia; I10 Essential (primary) hypertension; T45.0X2A Poisoning by antiallergic and antiemetic drugs, intentional self-harm, initial encounter; Z20.822 Contact with and (suspected) exposure to COVID-19; L30.9 Dermatitis, unspecified; T50.2X5A Adverse effect of carbonic-anhydrase inhibitors, benzothiadiazides and other diuretics, initial encounter; R53.81 Other malaise; D64.9 Anemia, unspecified; T14.91XA Suicide attempt, initial encounter; I27.81 Cor pulmonale (chronic); I48.0 Paroxysmal atrial fibrillation; Z98.84 Bariatric surgery status; Z99.81 Dependence on supplemental oxygen; Z87.891 Personal history of nicotine dependence
CPT/HCPCS: 36415; 36600; 51702; 71045; 80048; 80053; 80061; 80076; 80202; 80306; 80307; 81003; 81015; 82550; 82805; 83036; 83605; 83735; 83880; 84443; 85025; 85027; 85379; 86140; 87040; 87081; 93005; 93306; 93923; 93970; 94660; 94760; 97139; J0456; J0692; J0696; J1650; J1940; J3370; J3475; J3480; J3490; J7050; S0028; U0002; U0003; U0005

== ENCOUNTER 2023-07-20 11:36 | Inpatient (IN) | payer BC ==
[2023-07-20 12:49] LABS: #Basophils 0.03 10x3/uL (0.0-0.2); %Basophils 0.6 % (0.0-1.0); %Eosinophils 1.7 % (0.0-10.0); %Lymphocytes 10.4 % (21.0-51.0); %Monocytes 12.9 % (0.0-10.0); %Neutrophils 74.2 % (42.0-75.0); Hematocrit 36.6 % (42.0-52.0); Mean Corpuscular HGB CONC 30.1 g/dL (32.0-36.0); Mean Corpuscular Hemoglobin 27.6 pg (27.0-31.0); Mean Corpuscular Volume 91.7 fL (78.0-98.0); Mean Platelet Volume 10.4 fL (7.4-10.4); Platelet Count 182 10x3/uL (130-400); RBC Distribution Width 15.1 % (11.5-14.5); Red Blood Cell (RBC) Count 3.99 mill/uL (4.70-6.10)
[2023-07-20 13:05] LABS: Troponin I 0.011 ng/mL (< 0.028)
[2023-07-20 13:09] LABS: INR-International Normal Ratio 1.4; Prothrombin Time 17.6 sec (12.0-14.7)
[2023-07-20 13:10] LABS: Anion Gap 13 mmol/L (10-20); BUN (Urea Nitrogen) 16 mg/dL (8.4-25.7); Calc. Creatinine Clearance 0 mL/min (70-130); Calcium 9.4 mg/dL (7.8-10.44); Carbon Dioxide 33 mmol/L (22-29); Chloride 102 mmol/L (98-107); Estimated GFR 103; Glucose 94 mg/dL (70-105); PTT 35.7 sec (22.9-36.1); Potassium 4.5 mmol/L (3.5-5.1); Sodium 143 mmol/L (136-145)
[2023-07-20 13:11] LABS: ALT (SGPT) 18 U/L (8-55); AST (SGOT) 23 U/L (5-34); Albumin 3.3 g/dL (3.5-5.0); Alkaline Phosphatase 114 U/L (40-110); Bilirubin, Total 0.8 mg/dL (0.2-1.2); Globulin 3.7 g/dL (2.4-3.5); Magnesium 1.9 mg/dL (1.6-2.6)
[2023-07-20] MEDS ORDERED: Piperacillin/Tazobactam 4.5 GM VIAL ONE (14:19)
[2023-07-20] MEDS ORDERED: Morphine 4 MG/ML VIAL ONE (14:19)
[2023-07-20] MEDS ORDERED: Sodium Chloride 0.9% 100 ML ONE (14:20)
[2023-07-20] MEDS ORDERED: Vancomycin HCl 500 MG in Sodium Chloride 0.9% 100 ML IVPB SCH (14:30)
[2023-07-20 15:57] LABS: Bacteria/HPF None Seen HPF (None Seen); Bilirubin Negative (Negative); Blood, Urine Negative (Negative); CAUTI Indications for Culture Alt mental st,lethar; Clarity Clear (Clear); Glucose, Urine (Dipstick) Normal (Negative); Ketone, Urine Negative (Negative); Leukocyte Negative Leu/uL (Negative); Nitrite Negative (Negative); Protein, Urine (Dipstick) 10 mg/dL (Neg-Trace); RBC/HPF 0-3 HPF (0-3); Specific Gravity, Urine 1.025 (1.002-1.036); Squamous Epithelial 0-3 HPF (0-3); Urobilinogen 3 mg/dL (Less than 2); WBC/HPF 0-3 HPF (0-3); pH, Urine 5.5 (5.0-9.0)
[2023-07-20 15:58] LABS: Troponin I 0.014 ng/mL (< 0.028)
[2023-07-20 15:59] LABS: Urine Culture Reflex No No
[2023-07-20] MEDS ORDERED: Acetaminophen 650 MG Suppository PR PRN (17:29)
[2023-07-20] MEDS ORDERED: Senokot S 8.6-50 MG TAB PO PRN (17:29)
[2023-07-20] MEDS ORDERED: Bisacodyl 10 MG SUPP PR PRN (17:29)
[2023-07-20] MEDS ORDERED: Ondansetron ODT 4 MG TAB PO PRN (17:29)
[2023-07-20] MEDS ORDERED: Ondansetron PF 4 MG/2 ML Vial IVP PRN (17:29)
[2023-07-20] MEDS ORDERED: Nystatin Powder 15 GM BOT TOP PRN (17:33)
[2023-07-20] MEDS ORDERED: Ipratropium/Albuterol 3 ML NEB NEB PRN (17:39)
[2023-07-20] MEDS ORDERED: Electrolyte Replacement Protocol FS SCH (17:45)
[2023-07-20 19:42] LABS: Magnesium 1.9 mg/dL (1.6-2.6)
[2023-07-20 19:49] LABS: Troponin I 0.011 ng/mL (< 0.028)
[2023-07-20] MEDS: Vancomycin (BATCH) 2.5 GM in Premix 1 BAG IVPB SCH (20:24)
[2023-07-20 20:40] VITALS: BMI 66.9
[2023-07-20] MEDS: Piperacillin/Tazobactam 3.375 GM in Sodium Chloride 0.9% 100 ML IVPB SCH (20:48)
[2023-07-20] MEDS: Morphine 4 MG/ML VIAL SLOW IVP PRN (20:50)
[2023-07-20] MEDS: Famotidine 20 MG TAB PO SCH (21:08)
[2023-07-20] MEDS: Carvedilol 6.25 MG TAB PO SCH (21:08)
[2023-07-20] MEDS: Apixaban 5 MG TAB PO SCH (21:08)
[2023-07-20] MEDS: Furosemide 40 MG (4 mL) VIAL SLOW IVP SCH (21:13)
[2023-07-20] MEDS: Magnesium 2 GM/50 ML(in water) 2 GM in Premix 1 BAG IVPB SCH (23:05)
[2023-07-20] MEDS: traMADol HCl 50 MG TAB PO PRN (23:16)
[2023-07-21] MEDS: Vancomycin 1 GM in Premix 1 BAG IVPB SCH (00:33)
[2023-07-21 05:18] LABS: Hematocrit 36.1 % (42.0-52.0); Hemoglobin 10.2 g/dL (14.0-18.0); Mean Corpuscular HGB CONC 28.3 g/dL (32.0-36.0); Mean Corpuscular Hemoglobin 26.4 pg (27.0-31.0); Mean Corpuscular Volume 93.3 fL (78.0-98.0); Platelet Count 191 10x3/uL (130-400); RBC Distribution Width 15.3 % (11.5-14.5); Red Blood Cell (RBC) Count 3.87 mill/uL (4.70-6.10)
[2023-07-21] MEDS: Furosemide 40 MG (4 mL) VIAL SLOW IVP SCH (05:27)
[2023-07-21 05:35] LABS: Anion Gap 12 mmol/L (10-20); BUN (Urea Nitrogen) 16 mg/dL (8.4-25.7); Calc. Creatinine Clearance 345 mL/min (70-130); Calcium 8.9 mg/dL (7.8-10.44); Carbon Dioxide 37 mmol/L (22-29); Chloride 98 mmol/L (98-107); Estimated GFR 103; Glucose 106 mg/dL (70-105); Magnesium 1.9 mg/dL (1.6-2.6); Potassium 4.7 mmol/L (3.5-5.1); Sodium 142 mmol/L (136-145)
[2023-07-21 05:37] LABS: Vancomycin, Random 17.9 ug/mL (See Comment)
[2023-07-21 06:20] LABS: Hypochromia SLIGHT = 6-15 cells HPF (0-5); Platelet Adequacy Comment Platelets Normal; Stomatocytes SLIGHT = 2-5 cells HPF (0-1)
[2023-07-21 06:22] LABS: #Basophils 0.05 10x3/uL (0.0-0.2); %Basophils 0.7 % (0.0-1.0); %Eosinophils 1.1 % (0.0-10.0); %Lymphocytes 8.5 % (21.0-51.0); %Monocytes 12.7 % (0.0-10.0); %Neutrophils 76.7 % (42.0-75.0)
[2023-07-21] MEDS ORDERED: Docusate 100 MG CAP PO PRN (08:24)
[2023-07-21] MEDS ORDERED: Polyethylene Glycol 3350 17 GM Packet PO PRN (08:24)
[2023-07-21 08:39] VITALS: BMI 66.9
[2023-07-21] MEDS: Lisinopril 5 MG TAB PO SCH (10:37)
[2023-07-21] MEDS: Potassium Chloride 20 MEQ TAB PO SCH (10:37)
[2023-07-21] MEDS: Aripiprazole 2 MG TAB PO SCH (10:37)
[2023-07-21] MEDS: Folic Acid 1 MG TAB PO SCH (10:38)
[2023-07-21] MEDS: Magnesium 2 GM/50 ML(in water) 2 GM in Premix 1 BAG IVPB SCH (10:39)
[2023-07-21] MEDS: Aquaphor 2.8 oz 80 GM JAR TOP SCH (13:04)
[2023-07-21] MEDS: Ipratropium/Albuterol 3 ML NEB NEB SCH (13:47)
[2023-07-21] MEDS: Phenol 177 ML BOT PO PRN (15:32)
[2023-07-22] MEDS: acetaZOLAMIDE Sodium 500 mg Vial IVP SCH (09:16)
[2023-07-22] MEDS: Acetaminophen 325 MG TAB PO PRN (10:11)
[2023-07-22] MEDS ORDERED: Vancomycin (BATCH) 1.25 GM in Premix 1 BAG IVPB SCH (16:00)
[2023-07-22] MEDS ORDERED: Vancomycin 1 GM in Premix 1 BAG IVPB SCH (16:00)
[2023-07-22] MEDS: cefTRIAXone\\ROCEPHIN 2 GM in Sodium Chloride 0.9% 100 ML IVPB SCH (19:35)
[2023-07-22] MEDS: traZODone HCl 50 MG TAB PO SCH (20:39)
[2023-07-22] MEDS: Melatonin 3 MG TAB PO SCH (20:40)
[2023-07-23 04:43] LABS: #Basophils 0.03 10x3/uL (0.0-0.2); %Basophils 0.6 % (0.0-1.0); %Eosinophils 4.1 % (0.0-10.0); %Lymphocytes 12.8 % (21.0-51.0); %Monocytes 13.7 % (0.0-10.0); %Neutrophils 68.6 % (42.0-75.0); Hematocrit 34.6 % (42.0-52.0); Mean Corpuscular HGB CONC 28.9 g/dL (32.0-36.0); Mean Corpuscular Hemoglobin 26.2 pg (27.0-31.0); Mean Corpuscular Volume 90.6 fL (78.0-98.0); Mean Platelet Volume 10.8 fL (7.4-10.4); Platelet Count 165 10x3/uL (130-400); RBC Distribution Width 15.3 % (11.5-14.5); Red Blood Cell (RBC) Count 3.82 mill/uL (4.70-6.10)
[2023-07-23 05:18] LABS: Anion Gap 13 mmol/L (10-20); BUN (Urea Nitrogen) 19 mg/dL (8.4-25.7); Calc. Creatinine Clearance 341 mL/min (70-130); Calcium 8.9 mg/dL (7.8-10.44); Carbon Dioxide 38 mmol/L (22-29); Chloride 93 mmol/L (98-107); Estimated GFR 102; Glucose 92 mg/dL (70-105); Potassium 3.6 mmol/L (3.5-5.1); Sodium 140 mmol/L (136-145)
[2023-07-23 05:42] LABS: Hypochromia SLIGHT = 6-15 cells HPF (0-5); Platelet Adequacy Comment Platelets Normal; Polychromasia SLIGHT = 2-3 cells HPF (0-2)
[2023-07-23] MEDS ORDERED: acetaZOLAMIDE Sodium 500 MG in Sodium Chloride 0.9% 50 ML IVPB SCH (09:15)
[2023-07-23] MEDS: Carvedilol 6.25 MG TAB PO SCH (17:01)
[2023-07-23] MEDS: Albumin 25% 25 GM (100 mL) BOT IVPB SCH (17:02)
[2023-07-23] MEDS: acetaZOLAMIDE Sodium 500 MG in Sodium Chloride 0.9% 50 ML IVPB SCH (17:02)
[2023-07-23] MEDS: traZODone HCl 50 MG TAB PO SCH (23:58)
[2023-07-24 04:31] LABS: #Basophils 0.04 10x3/uL (0.0-0.2); %Basophils 0.8 % (0.0-1.0); %Eosinophils 5.8 % (0.0-10.0); %Lymphocytes 14.3 % (21.0-51.0); %Monocytes 13.9 % (0.0-10.0); %Neutrophils 64.8 % (42.0-75.0); Hematocrit 36.2 % (42.0-52.0); Hemoglobin 10.6 g/dL (14.0-18.0); Mean Corpuscular HGB CONC 29.3 g/dL (32.0-36.0); Mean Corpuscular Hemoglobin 26.5 pg (27.0-31.0); Mean Corpuscular Volume 90.5 fL (78.0-98.0); Mean Platelet Volume 10.6 fL (7.4-10.4); Platelet Count 185 10x3/uL (130-400); RBC Distribution Width 15.4 % (11.5-14.5)
[2023-07-24 04:52] LABS: Anion Gap 12 mmol/L (10-20); BUN (Urea Nitrogen) 15 mg/dL (8.4-25.7); Calc. Creatinine Clearance 378 mL/min (70-130); Calcium 9.1 mg/dL (7.8-10.44); Carbon Dioxide 34 mmol/L (22-29); Chloride 97 mmol/L (98-107); Estimated GFR 103; Glucose 98 mg/dL (70-105); Potassium 3.8 mmol/L (3.5-5.1); Sodium 139 mmol/L (136-145)
[2023-07-24] MEDS ORDERED: Furosemide 40 MG (4 mL) VIAL SLOW IVP SCH (06:00)
[2023-07-24] MEDS: Albumin 25% 25 GM (100 mL) BOT IVPB SCH (10:59)
[2023-07-24] MEDS: AcetaZOLAMIDE ER 500 MG CAP PO SCH (10:59)
[2023-07-24] MEDS: traZODone HCl 50 MG TAB PO SCH (23:47)
[2023-07-25 04:37] LABS: #Basophils Less than 0.03 10x3/uL (0.0-0.2); %Basophils 0.5 % (0.0-1.0); %Eosinophils 5.6 % (0.0-10.0); %Lymphocytes 15.8 % (21.0-51.0); %Monocytes 13.5 % (0.0-10.0); %Neutrophils 64.4 % (42.0-75.0); Hematocrit 34.4 % (42.0-52.0); Hemoglobin 10.1 g/dL (14.0-18.0); Mean Corpuscular HGB CONC 29.4 g/dL (32.0-36.0); Mean Corpuscular Hemoglobin 27.3 pg (27.0-31.0); Mean Platelet Volume 10.6 fL (7.4-10.4); Platelet Count 178 10x3/uL (130-400); RBC Distribution Width 15.3 % (11.5-14.5)
[2023-07-25 05:01] LABS: Anion Gap 12 mmol/L (10-20); BUN (Urea Nitrogen) 16 mg/dL (8.4-25.7); Calc. Creatinine Clearance 398 mL/min (70-130); Calcium 9.3 mg/dL (7.8-10.44); Carbon Dioxide 31 mmol/L (22-29); Chloride 101 mmol/L (98-107); Estimated GFR 104; Glucose 97 mg/dL (70-105); Potassium 3.8 mmol/L (3.5-5.1); Sodium 140 mmol/L (136-145)
[2023-07-25] MEDS: AcetaZOLAMIDE ER 500 MG CAP PO SCH (08:57)
[2023-07-25] MEDS: cefTRIAXone\\ROCEPHIN 2 GM in Sodium Chloride 0.9% 100 ML IVPB SCH (09:10)
[2023-07-25] MEDS: traZODone HCl 50 MG TAB PO SCH (21:19)
[2023-07-26 05:02] LABS: #Basophils 0.03 10x3/uL (0.0-0.2); %Basophils 0.7 % (0.0-1.0); %Eosinophils 5.7 % (0.0-10.0); %Monocytes 13.6 % (0.0-10.0); %Neutrophils 63.6 % (42.0-75.0); Hemoglobin 11.2 g/dL (14.0-18.0); Mean Corpuscular HGB CONC 28.7 g/dL (32.0-36.0); Mean Corpuscular Hemoglobin 26.9 pg (27.0-31.0); Mean Corpuscular Volume 93.8 fL (78.0-98.0); Mean Platelet Volume 11.2 fL (7.4-10.4); Platelet Count 190 10x3/uL (130-400); RBC Distribution Width 15.3 % (11.5-14.5); Red Blood Cell (RBC) Count 4.16 mill/uL (4.70-6.10)
[2023-07-26 05:07] LABS: Anion Gap 11 mmol/L (10-20); BUN (Urea Nitrogen) 17 mg/dL (8.4-25.7); Calc. Creatinine Clearance 426 mL/min (70-130); Calcium 9.5 mg/dL (7.8-10.44); Carbon Dioxide 30 mmol/L (22-29); Chloride 103 mmol/L (98-107); Estimated GFR 106; Glucose 94 mg/dL (70-105); Potassium 4.1 mmol/L (3.5-5.1); Sodium 140 mmol/L (136-145)
[2023-07-27 00:24] VITALS: BP 132/65; TEMP 97.4
== END 2023-07-26 20:39 | disposition home or self-care (01) | DRG 291 ==
LOC: ERS 11:36 → 2NO 15:17 → ERHOLD 15:28 → 2NO 18:36
PROVIDERS: ADMIT Internal Medicine; ATTEND Hospitalist
PROC: 5A09357 Assistance with Respiratory Ventilation, Less than 24 Consecutive Hours, Continuous Positive Airway Pressure (ICD-10-PCS; principal; 2023-07-21)
DX: I11.0 Hypertensive heart disease with heart failure (principal); I50.31 Acute diastolic (congestive) heart failure; J96.21 Acute and chronic respiratory failure with hypoxia; J96.22 Acute and chronic respiratory failure with hypercapnia; E66.2 Morbid (severe) obesity with alveolar hypoventilation; Z68.45 Body mass index [BMI] 70 or greater, adult; L03.115 Cellulitis of right lower limb; L03.116 Cellulitis of left lower limb; J44.9 Chronic obstructive pulmonary disease, unspecified; I48.0 Paroxysmal atrial fibrillation; B96.89 Other specified bacterial agents as the cause of diseases classified elsewhere; D64.9 Anemia, unspecified; Z91.148 Patient's other noncompliance with medication regimen for other reason; Z99.81 Dependence on supplemental oxygen; Z79.01 Long term (current) use of anticoagulants; Z79.899 Other long term (current) drug therapy; Z87.891 Personal history of nicotine dependence
CPT/HCPCS: 36415; 36416; 51702; 71045; 80048; 80053; 80202; 81001; 83605; 83735; 83880; 84443; 84484; 85025; 85610; 85730; 87040; 87070; 87077; 87086; 87186; 87205; 93005; 93970; 94640; 96374; 96375; 97139; J0696; J1120; J1940; J2270; J2543; J3370; J3370-JW; J3475; J3490; J7620; P9047

== ENCOUNTER 2024-02-10 10:34 | Inpatient (IN) | payer MEDICARE ==
[2024-02-10 11:29] LABS: Hemoglobin 9.9 g/dL (14.0-18.0)
[2024-02-10 11:30] LABS: #Basophils 0.04 10x3/uL (0.0-0.2); %Basophils 0.8 % (0.0-1.0); %Eosinophils 2.1 % (0.0-10.0); %Lymphocytes 13.9 % (21.0-51.0); %Monocytes 10.4 % (0.0-10.0); %Neutrophils 72.2 % (42.0-75.0); Mean Corpuscular HGB CONC 28.3 g/dL (32.0-36.0); Mean Corpuscular Hemoglobin 28.3 pg (27.0-31.0); Mean Platelet Volume 10.4 fL (7.4-10.4); Platelet Count 171 10x3/uL (130-400)
[2024-02-10 11:34] LABS: INR-International Normal Ratio 1.2; PTT 29.6 sec (22.9-36.1); Prothrombin Time 15.3 sec (12.0-14.7)
[2024-02-10 11:46] LABS: ALT (SGPT) 14 U/L (8-55); AST (SGOT) 21 U/L (5-34); Albumin 3.4 g/dL (3.5-5.0); Alkaline Phosphatase 102 U/L (40-110); Anion Gap 13 mmol/L (10-20); BUN (Urea Nitrogen) 13 mg/dL (8.4-25.7); Bilirubin, Total 0.8 mg/dL (0.2-1.2); Calc. Creatinine Clearance 0 mL/min (70-130); Calcium 8.8 mg/dL (7.8-10.44); Carbon Dioxide 34 mmol/L (22-29); Chloride 102 mmol/L (98-107); Estimated GFR 108; Globulin 3.6 g/dL (2.4-3.5); Glucose 110 mg/dL (70-105); Lipase 11 U/L (8-78); Magnesium 1.8 mg/dL (1.6-2.6); Potassium 4.1 mmol/L (3.5-5.1); Sodium 145 mmol/L (136-145)
[2024-02-10 11:50] LABS: Troponin I Less than 0.010 ng/mL (< 0.028)
[2024-02-10] MEDS ORDERED: Morphine 4 MG/ML VIAL ONE (11:58)
[2024-02-10] MEDS ORDERED: Nitroglycerin 2% Ointment 1 INCH/1 GM Packet ONE (11:58)
[2024-02-10] MEDS ORDERED: Furosemide 40 MG (4 mL) VIAL ONE (11:58)
[2024-02-10 12:18] LABS: Macrocytosis SLIGHT = 6-15 cells HPF (0-5); Platelet Adequacy Comment Platelets Normal; Polychromasia MODERATE = 3-4 cells HPF (0-2); Stomatocytes SLIGHT = 2-5 cells HPF (0-1)
[2024-02-10] MEDS ORDERED: Apixaban 5 MG TAB ONE (12:48)
[2024-02-10] MEDS ORDERED: Bisacodyl 5 MG TAB PO PRN (12:57)
[2024-02-10] MEDS ORDERED: Senokot S 8.6-50 MG TAB PO PRN (12:57)
[2024-02-10] MEDS ORDERED: Ondansetron PF 4 MG/2 ML Vial IVP PRN (12:57)
[2024-02-10] MEDS ORDERED: Ondansetron ODT 4 MG TAB PO PRN (12:57)
[2024-02-10] MEDS ORDERED: Acetaminophen 325 MG TAB PO PRN (12:57)
[2024-02-10 13:16] LABS: Bacteria/HPF None Seen HPF (None Seen); Bilirubin Negative (Negative); Blood, Urine Negative (Negative); CAUTI Indications for Culture Dysuria,urgency,freq; Clarity Clear (Clear); Glucose, Urine (Dipstick) Normal (Negative); Ketone, Urine Negative (Negative); Leukocyte Negative Leu/uL (Negative); Nitrite Negative (Negative); Protein, Urine (Dipstick) Negative (Neg-Trace); RBC/HPF 0-3 HPF (0-3); Squamous Epithelial None Seen HPF (0-3); Urobilinogen Normal mg/dL (Less than 2); WBC/HPF 0-3 HPF (0-3); pH, Urine 5.5 (5.0-9.0)
[2024-02-10 13:18] LABS: Urine Culture Reflex No No
[2024-02-10 13:21] LABS: Amphetamine Not Detected (NotDetected); Barbiturates Screen Not Detected (NotDetected); Benzodiazepine Screen Not Detected (NotDetected); Cocaine Metabolite Screen Not Detected (NotDetected); Methadone Not Detected (NotDetected); Methamphetamine Not Detected (NotDetected); Opiate Screen Detected (NotDetected); Oxycodone Screen Not Detected (NotDetected); Phencyclidine (PCP) Not Detected (NotDetected); THC/Cannabinoid Screen Not Detected (NotDetected); Tricyclic Screen Not Detected (NotDetected)
[2024-02-10 18:10] VITALS: BMI 75.4
[2024-02-10 19:02] LABS: Troponin I 0.011 ng/mL (< 0.028)
[2024-02-10] MEDS: Furosemide 40 MG (4 mL) VIAL SLOW IVP SCH (19:08)
[2024-02-10] MEDS: traMADol HCl 50 MG TAB PO PRN (22:05)
[2024-02-10] MEDS: Famotidine 20 MG TAB PO SCH (22:05)
[2024-02-10] MEDS: Apixaban 5 MG TAB PO SCH (22:06)
[2024-02-10] MEDS: Carvedilol 6.25 MG TAB PO SCH (22:06)
[2024-02-10] MEDS: traZODone HCl 50 MG TAB PO PRN (22:06)
[2024-02-11 05:11] LABS: #Basophils 0.03 10x3/uL (0.0-0.2); %Basophils 0.7 % (0.0-1.0); %Eosinophils 2.6 % (0.0-10.0); %Lymphocytes 10.8 % (21.0-51.0); %Monocytes 13.2 % (0.0-10.0); %Neutrophils 72.3 % (42.0-75.0); Hematocrit 35.1 % (42.0-52.0); Hemoglobin 10.1 g/dL (14.0-18.0); Mean Corpuscular HGB CONC 28.8 g/dL (32.0-36.0); Mean Corpuscular Hemoglobin 28.1 pg (27.0-31.0); Mean Corpuscular Volume 97.5 fL (78.0-98.0); Mean Platelet Volume 10.5 fL (7.4-10.4); Platelet Count 154 10x3/uL (130-400)
[2024-02-11 05:22] LABS: Anion Gap 13 mmol/L (10-20); BUN (Urea Nitrogen) 10 mg/dL (8.4-25.7); Calc. Creatinine Clearance 446 mL/min (70-130); Calcium 8.8 mg/dL (7.8-10.44); Carbon Dioxide 36 mmol/L (22-29); Chloride 100 mmol/L (98-107); Estimated GFR 107; Glucose 97 mg/dL (70-105); Potassium 3.9 mmol/L (3.5-5.1); Sodium 145 mmol/L (136-145)
[2024-02-11] MEDS: diphenhydrAMINE 50 MG/ML VIAL IVP SCH (23:41)
[2024-02-12 04:06] LABS: #Basophils 0.04 10x3/uL (0.0-0.2); %Basophils 0.9 % (0.0-1.0); %Eosinophils 3.3 % (0.0-10.0); %Lymphocytes 14.5 % (21.0-51.0); %Monocytes 15.1 % (0.0-10.0); %Neutrophils 65.8 % (42.0-75.0); Hematocrit 34.5 % (42.0-52.0); Hemoglobin 10.1 g/dL (14.0-18.0); Mean Corpuscular HGB CONC 29.3 g/dL (32.0-36.0); Mean Corpuscular Hemoglobin 28.2 pg (27.0-31.0); Mean Corpuscular Volume 96.4 fL (78.0-98.0); Mean Platelet Volume 10.1 fL (7.4-10.4); Platelet Count 161 10x3/uL (130-400); RBC Distribution Width 14.7 % (11.5-14.5); Red Blood Cell (RBC) Count 3.58 mill/uL (4.70-6.10)
[2024-02-12 04:25] LABS: Anion Gap 11 mmol/L (10-20); BUN (Urea Nitrogen) 12 mg/dL (8.4-25.7); Calc. Creatinine Clearance 446 mL/min (70-130); Calcium 8.5 mg/dL (7.8-10.44); Carbon Dioxide 43 mmol/L (22-29); Chloride 93 mmol/L (98-107); Estimated GFR 107; Glucose 100 mg/dL (70-105); Magnesium 1.5 mg/dL (1.6-2.6); Potassium 3.7 mmol/L (3.5-5.1); Sodium 143 mmol/L (136-145)
[2024-02-12] MEDS: Potassium Chloride 20 MEQ TAB PO SCH (09:06)
[2024-02-12] MEDS: Aripiprazole 2 MG TAB PO SCH (09:06)
[2024-02-12] MEDS: Folic Acid 1 MG TAB PO SCH (09:06)
[2024-02-12] MEDS: Lisinopril 5 MG TAB PO SCH (09:07)
[2024-02-12] MEDS ORDERED: methylPREDNISolone Acetate 40 mg/ml Vial I-ARTICULR PRN ×2 (12:48→13:00)
[2024-02-12] MEDS: diphenhydrAMINE 25 MG CAP PO SCH (22:01)
[2024-02-13 04:40] LABS: #Basophils 0.03 10x3/uL (0.0-0.2); %Basophils 0.6 % (0.0-1.0); %Eosinophils 4.8 % (0.0-10.0); %Lymphocytes 15.3 % (21.0-51.0); %Monocytes 13.6 % (0.0-10.0); %Neutrophils 65.3 % (42.0-75.0); Hematocrit 34.9 % (42.0-52.0); Hemoglobin 10.1 g/dL (14.0-18.0); Mean Corpuscular HGB CONC 28.9 g/dL (32.0-36.0); Mean Corpuscular Volume 96.7 fL (78.0-98.0); Mean Platelet Volume 10.5 fL (7.4-10.4); Platelet Count 172 10x3/uL (130-400); RBC Distribution Width 14.8 % (11.5-14.5); Red Blood Cell (RBC) Count 3.61 mill/uL (4.70-6.10)
[2024-02-13 05:00] LABS: Anion Gap 11 mmol/L (10-20); BUN (Urea Nitrogen) 15 mg/dL (8.4-25.7); Calc. Creatinine Clearance 446 mL/min (70-130); Calcium 8.6 mg/dL (7.8-10.44); Carbon Dioxide 45 mmol/L (22-29); Chloride 90 mmol/L (98-107); Estimated GFR 107; Glucose 95 mg/dL (70-105); Potassium 3.9 mmol/L (3.5-5.1); Sodium 142 mmol/L (136-145)
[2024-02-13 05:08] LABS: Hypochromia SLIGHT = 6-15 cells HPF (0-5); Platelet Adequacy Comment Platelets Normal; Polychromasia SLIGHT = 2-3 cells HPF (0-2)
[2024-02-13] MEDS ORDERED: methylPREDNISolone Acetate 40 mg/ml Vial I-ARTICULR PRN ×2 (08:31→08:32)
[2024-02-13] MEDS: Lidocaine 1% (PF) 30 ML VIAL ONE (16:22)
[2024-02-13] MEDS: Nystatin Powder 15 GM BOT TOP PRN (21:28)
[2024-02-13] MEDS: FLU (Fluarix Triv) TS24-25(6MOS UP)/PF 45 MCG/0.5 ML Syringe IM ONE (23:08)
[2024-02-13] MEDS: Lidocaine 1% (PF) 30 ML VIAL SC SCH (23:08)
[2024-02-14 05:51] LABS: #Basophils Less than 0.03 10x3/uL (0.0-0.2); #Eosinophils Less than 0.03 10x3/uL (0.0-0.7); %Basophils 0.2 % (0.0-1.0); %Monocytes 4.5 % (0.0-10.0); %Neutrophils 86.7 % (42.0-75.0); Hematocrit 37.8 % (42.0-52.0); Hemoglobin 11.4 g/dL (14.0-18.0); Mean Corpuscular HGB CONC 30.2 g/dL (32.0-36.0); Mean Corpuscular Hemoglobin 28.1 pg (27.0-31.0); Mean Corpuscular Volume 93.1 fL (78.0-98.0); Mean Platelet Volume 10.9 fL (7.4-10.4); Platelet Count 180 10x3/uL (130-400); RBC Distribution Width 14.7 % (11.5-14.5); Red Blood Cell (RBC) Count 4.06 mill/uL (4.70-6.10)
[2024-02-14 06:18] LABS: Anion Gap 15 mmol/L (10-20); BUN (Urea Nitrogen) 18 mg/dL (8.4-25.7); Calc. Creatinine Clearance 466 mL/min (70-130); Calcium 8.8 mg/dL (7.8-10.44); Carbon Dioxide 36 mmol/L (22-29); Chloride 91 mmol/L (98-107); Estimated GFR 108; Glucose 154 mg/dL (70-105); Potassium 4.4 mmol/L (3.5-5.1); Sodium 138 mmol/L (136-145)
[2024-02-14] MEDS ORDERED: Electrolyte Replacement Protocol 1 EACH FS SCH (15:00)
[2024-02-14] MEDS ORDERED: Electrolyte Replacement Protocol FS PRN (15:15)
[2024-02-14] MEDS: Magnesium 2 GM/50 ML(in water) 2 GM in Premix 1 BAG IVPB SCH (17:42)
[2024-02-14] MEDS: Apixaban 5 MG TAB PO SCH (21:14)
[2024-02-15 05:50] LABS: #Basophils 0.05 10x3/uL (0.0-0.2); %Basophils 0.6 % (0.0-1.0); %Lymphocytes 13.6 % (21.0-51.0); %Monocytes 11.4 % (0.0-10.0); %Neutrophils 70.2 % (42.0-75.0); Hematocrit 40.9 % (42.0-52.0); Hemoglobin 11.9 g/dL (14.0-18.0); Mean Corpuscular HGB CONC 29.1 g/dL (32.0-36.0); Mean Corpuscular Hemoglobin 27.9 pg (27.0-31.0); Mean Platelet Volume 10.6 fL (7.4-10.4); Platelet Count 200 10x3/uL (130-400); RBC Distribution Width 15.2 % (11.5-14.5); Red Blood Cell (RBC) Count 4.26 mill/uL (4.70-6.10)
[2024-02-15 06:31] LABS: Anion Gap 14 mmol/L (10-20); BUN (Urea Nitrogen) 23 mg/dL (8.4-25.7); Calc. Creatinine Clearance 366 mL/min (70-130); Calcium 9.4 mg/dL (7.8-10.44); Carbon Dioxide 40 mmol/L (22-29); Chloride 91 mmol/L (98-107); Estimated GFR 100; Glucose 97 mg/dL (70-105); Potassium 3.8 mmol/L (3.5-5.1); Sodium 141 mmol/L (136-145)
[2024-02-15] MEDS: Magnesium 2 GM/50 ML(in water) 2 GM in Premix 1 BAG IVPB SCH (09:14)
[2024-02-16 04:40] LABS: #Basophils 0.04 10x3/uL (0.0-0.2); %Basophils 0.7 % (0.0-1.0); %Eosinophils 4.4 % (0.0-10.0); %Lymphocytes 16.4 % (21.0-51.0); %Monocytes 11.5 % (0.0-10.0); %Neutrophils 66.5 % (42.0-75.0); Hemoglobin 11.3 g/dL (14.0-18.0); Mean Corpuscular HGB CONC 29.7 g/dL (32.0-36.0); Mean Corpuscular Hemoglobin 28.2 pg (27.0-31.0); Mean Corpuscular Volume 94.8 fL (78.0-98.0); Mean Platelet Volume 10.9 fL (7.4-10.4); Platelet Count 190 10x3/uL (130-400); RBC Distribution Width 15.1 % (11.5-14.5); Red Blood Cell (RBC) Count 4.01 mill/uL (4.70-6.10)
[2024-02-16 04:57] LABS: Anion Gap 11 mmol/L (10-20); BUN (Urea Nitrogen) 25 mg/dL (8.4-25.7); Calc. Creatinine Clearance 394 mL/min (70-130); Calcium 8.6 mg/dL (7.8-10.44); Carbon Dioxide 41 mmol/L (22-29); Chloride 90 mmol/L (98-107); Estimated GFR 103; Glucose 89 mg/dL (70-105); Potassium 3.8 mmol/L (3.5-5.1); Sodium 138 mmol/L (136-145)
[2024-02-17 06:53] LABS: #Basophils 0.07 10x3/uL (0.0-0.2); %Basophils 1.1 % (0.0-1.0); %Eosinophils 4.4 % (0.0-10.0); %Lymphocytes 14.9 % (21.0-51.0); %Monocytes 13.6 % (0.0-10.0); %Neutrophils 65.3 % (42.0-75.0); Hematocrit 39.4 % (42.0-52.0); Hemoglobin 11.6 g/dL (14.0-18.0); Mean Corpuscular HGB CONC 29.4 g/dL (32.0-36.0); Mean Corpuscular Hemoglobin 28.2 pg (27.0-31.0); Mean Corpuscular Volume 95.6 fL (78.0-98.0); Mean Platelet Volume 11.2 fL (7.4-10.4); Platelet Count 192 10x3/uL (130-400); RBC Distribution Width 14.9 % (11.5-14.5); Red Blood Cell (RBC) Count 4.12 mill/uL (4.70-6.10)
[2024-02-17 07:06] LABS: Anion Gap 13 mmol/L (10-20); BUN (Urea Nitrogen) 26 mg/dL (8.4-25.7); Calc. Creatinine Clearance 410 mL/min (70-130); Calcium 8.9 mg/dL (7.8-10.44); Carbon Dioxide 37 mmol/L (22-29); Chloride 93 mmol/L (98-107); Estimated GFR 104; Glucose 85 mg/dL (70-105); Potassium 3.6 mmol/L (3.5-5.1); Sodium 139 mmol/L (136-145)
[2024-02-17] MEDS: Bumetanide 1 MG TAB PO SCH (08:28)
[2024-02-17 12:16] VITALS: BMI 75.4
[2024-02-19 05:36] LABS: Anion Gap 10 mmol/L (10-20); BUN (Urea Nitrogen) 21 mg/dL (8.4-25.7); Calc. Creatinine Clearance 405 mL/min (70-130); Calcium 8.9 mg/dL (7.8-10.44); Carbon Dioxide 35 mmol/L (22-29); Chloride 97 mmol/L (98-107); Estimated GFR 104; Glucose 98 mg/dL (70-105); Potassium 4.2 mmol/L (3.5-5.1); Sodium 138 mmol/L (136-145)
[2024-02-21] MEDS: Bumetanide 1 MG TAB PO SCH (09:17)
[2024-02-21] MEDS: Ipratropium/Albuterol 3 ML NEB NEB SCH (13:58)
[2024-02-22] MEDS: traMADol HCl 50 MG TAB PO PRN (21:33)
[2024-02-23 05:51] LABS: #Basophils 0.06 10x3/uL (0.0-0.2); %Eosinophils 4.8 % (0.0-10.0); %Lymphocytes 18.5 % (21.0-51.0); %Monocytes 12.7 % (0.0-10.0); %Neutrophils 62.4 % (42.0-75.0); Hematocrit 44.9 % (42.0-52.0); Hemoglobin 13.8 g/dL (14.0-18.0); Mean Corpuscular HGB CONC 30.7 g/dL (32.0-36.0); Mean Corpuscular Hemoglobin 28.2 pg (27.0-31.0); Mean Corpuscular Volume 91.6 fL (78.0-98.0); Mean Platelet Volume 11.8 fL (7.4-10.4); Platelet Count 210 10x3/uL (130-400); RBC Distribution Width 14.9 % (11.5-14.5)
[2024-02-23 06:13] LABS: ALT (SGPT) 26 U/L (8-55); AST (SGOT) 31 U/L (5-34); Albumin 3.2 g/dL (3.5-5.0); Alkaline Phosphatase 102 U/L (40-110); Anion Gap 12 mmol/L (10-20); BUN (Urea Nitrogen) 30 mg/dL (8.4-25.7); Bilirubin, Total 0.8 mg/dL (0.2-1.2); Calc. Creatinine Clearance 427 mL/min (70-130); Calcium 9.4 mg/dL (7.8-10.44); Carbon Dioxide 35 mmol/L (22-29); Chloride 95 mmol/L (98-107); Estimated GFR 105; Globulin 4.1 g/dL (2.4-3.5); Glucose 100 mg/dL (70-105); Magnesium 1.8 mg/dL (1.6-2.6); Potassium 4.1 mmol/L (3.5-5.1); Protein, Total 7.3 g/dL (6.0-8.3); Sodium 138 mmol/L (136-145)
[2024-02-23] MEDS: Magnesium 2 GM/50 ML(in water) 2 GM in Premix 1 BAG IVPB SCH (10:02)
[2024-02-24 05:01] LABS: #Basophils 0.07 10x3/uL (0.0-0.2); %Basophils 1.1 % (0.0-1.0); %Eosinophils 4.4 % (0.0-10.0); %Lymphocytes 17.7 % (21.0-51.0); %Monocytes 14.4 % (0.0-10.0); %Neutrophils 61.8 % (42.0-75.0); Hemoglobin 13.2 g/dL (14.0-18.0); Mean Corpuscular HGB CONC 30.7 g/dL (32.0-36.0); Mean Corpuscular Volume 91.1 fL (78.0-98.0); Mean Platelet Volume 11.3 fL (7.4-10.4); Platelet Count 209 10x3/uL (130-400); RBC Distribution Width 14.7 % (11.5-14.5); Red Blood Cell (RBC) Count 4.72 mill/uL (4.70-6.10)
[2024-02-25 05:20] LABS: #Basophils 0.05 10x3/uL (0.0-0.2); %Basophils 0.9 % (0.0-1.0); %Eosinophils 4.2 % (0.0-10.0); %Lymphocytes 17.8 % (21.0-51.0); %Monocytes 13.4 % (0.0-10.0); %Neutrophils 63.2 % (42.0-75.0); Hematocrit 43.8 % (42.0-52.0); Hemoglobin 13.4 g/dL (14.0-18.0); Mean Corpuscular HGB CONC 30.6 g/dL (32.0-36.0); Mean Corpuscular Hemoglobin 27.6 pg (27.0-31.0); Mean Corpuscular Volume 90.1 fL (78.0-98.0); Mean Platelet Volume 11.9 fL (7.4-10.4); Platelet Count 195 10x3/uL (130-400); RBC Distribution Width 14.5 % (11.5-14.5); Red Blood Cell (RBC) Count 4.86 mill/uL (4.70-6.10)
[2024-02-25 05:39] LABS: ALT (SGPT) 25 U/L (8-55); AST (SGOT) 29 U/L (5-34); Albumin 3.1 g/dL (3.5-5.0); Alkaline Phosphatase 94 U/L (40-110); Anion Gap 13 mmol/L (10-20); BUN (Urea Nitrogen) 29 mg/dL (8.4-25.7); Bilirubin, Total 0.7 mg/dL (0.2-1.2); Calc. Creatinine Clearance 427 mL/min (70-130); Calcium 9.1 mg/dL (7.8-10.44); Carbon Dioxide 30 mmol/L (22-29); Chloride 97 mmol/L (98-107); Estimated GFR 105; Globulin 3.7 g/dL (2.4-3.5); Glucose 97 mg/dL (70-105); Magnesium 1.9 mg/dL (1.6-2.6); Potassium 4.1 mmol/L (3.5-5.1); Protein, Total 6.8 g/dL (6.0-8.3); Sodium 136 mmol/L (136-145)
[2024-02-25] MEDS ORDERED: Ipratropium/Albuterol 3 ML NEB NEB PRN (07:39)
[2024-02-25] MEDS: Magnesium 2 GM/50 ML(in water) 2 GM in Premix 1 BAG IVPB SCH (09:37)
[2024-02-26 05:30] LABS: #Basophils 0.05 10x3/uL (0.0-0.2); %Basophils 0.8 % (0.0-1.0); %Lymphocytes 15.5 % (21.0-51.0); %Monocytes 11.1 % (0.0-10.0); %Neutrophils 68.3 % (42.0-75.0); Hematocrit 46.2 % (42.0-52.0); Mean Corpuscular HGB CONC 30.3 g/dL (32.0-36.0); Mean Corpuscular Hemoglobin 27.7 pg (27.0-31.0); Mean Corpuscular Volume 91.3 fL (78.0-98.0); Mean Platelet Volume 11.4 fL (7.4-10.4); Platelet Count 214 10x3/uL (130-400); RBC Distribution Width 14.6 % (11.5-14.5); Red Blood Cell (RBC) Count 5.06 mill/uL (4.70-6.10)
[2024-02-27 08:00] VITALS: TEMP 97.6
[2024-02-27 09:50] VITALS: BP 130/84
== END 2024-02-27 10:31 | DRG 291 ==
LOC: ERS 10:34 → ERHOLD 12:59 → 2NO 17:30 → SURG B 02-16 22:42
PROVIDERS: ADMIT Family Medicine; ATTEND Internal Medicine
PROC: 5A09457 Assistance with Respiratory Ventilation, 24-96 Consecutive Hours, Continuous Positive Airway Pressure (ICD-10-PCS; 2024-02-11)
PROC: 0S9D3ZZ Drainage of Left Knee Joint, Percutaneous Approach (ICD-10-PCS; principal; 2024-02-23)
PROC: 0S9C3ZZ Drainage of Right Knee Joint, Percutaneous Approach (ICD-10-PCS; 2024-02-23)
PROC: 3E0U33Z Introduction of Anti-inflammatory into Joints, Percutaneous Approach (ICD-10-PCS; 2024-02-23)
DX: I11.0 Hypertensive heart disease with heart failure (principal); I50.33 Acute on chronic diastolic (congestive) heart failure; J96.20 Acute and chronic respiratory failure, unspecified whether with hypoxia or hypercapnia; Z68.45 Body mass index [BMI] 70 or greater, adult; E66.2 Morbid (severe) obesity with alveolar hypoventilation; D64.9 Anemia, unspecified; I48.91 Unspecified atrial fibrillation; Z79.01 Long term (current) use of anticoagulants; Z98.890 Other specified postprocedural states; Z87.891 Personal history of nicotine dependence; M17.0 Bilateral primary osteoarthritis of knee; E83.42 Hypomagnesemia
CPT/HCPCS: 36415; 36416; 71045; 80048; 80053; 80306; 81001; 83690; 83735; 83880; 84443; 84484; 85025; 85610; 85730; 87428; 93005; 93970; 94640; 96374; 96375; J1200; J1940; J2272; J3475; J7620

== ENCOUNTER 2024-10-28 19:30 | Inpatient (IN) | payer MEDICARE ==
[2024-10-28 19:55] LABS: Actual Bicarbonate (HCO3a) 36.6 mEq/L (22-28); Analyzer IN Cardio ER; Base Excess (BEa) 3.3 mEq/L (-2.0 to +3.0); Calcium, Ionized (arterial) 1.23 mmol/L (1.12-1.30); Hematocrit-ABG 37 % (42.0-52.0); Hemoglobin (Hb) 12.6 g/dL (14.0-18.0); O2 Tension (PaO2), arterial 78.9 mmHg (80.0-100.0); Potassium - ABG Lab 5.13 mmol/L (3.70-5.30)
[2024-10-28 20:00] LABS: ALV-art Gradient 54.300 mmHg (0-20); CO2 Tension 121.6 mmHg (35.0-45.0); Puncture Site Left Radial artery; pH, Arterial 7.097 (7.35-7.45)
[2024-10-28 20:19] LABS: ALT (SGPT) 16 U/L (Less than 45); AST (SGOT) 27 U/L (11-34); Albumin 3.7 g/dL (3.1-4.5); Alkaline Phosphatase 103 U/L (40-110); Anion Gap 13 mmol/L (10-20); BUN (Urea Nitrogen) 38 mg/dL (8.4-25.7); Bilirubin, Total 0.5 mg/dL (0.3-1.2); Calc. Creatinine Clearance 0 mL/min (70-130); Calcium 8.6 mg/dL (7.8-10.44); Carbon Dioxide 28 mmol/L (22-29); Chloride 104 mmol/L (98-107); Globulin 3.7 g/dL (2.4-3.5); Glucose 122 mg/dL (70-105); Potassium 5.5 mmol/L (3.5-5.1); Sodium 139 mmol/L (136-145)
[2024-10-28 20:22] LABS: #Basophils 0.05 10x3/uL (0.0-0.2); #Eosinophils 0.05 10x3/uL (0.0-0.7); #Monocytes 1.06 10x3/uL (0.11-0.59); #Neutrophils 8.05 10x3/uL (1.40-6.50); %Basophils 0.5 % (0.0-1.0); %Eosinophils 0.5 % (0.0-10.0); %Lymphocytes 7.6 % (21.0-51.0); %Monocytes 10.5 % (0.0-10.0); %Neutrophils 79.9 % (42.0-75.0); Hematocrit 46.3 % (42.0-52.0); Hemoglobin 11.7 g/dL (14.0-18.0); Mean Corpuscular Hemoglobin 25.3 pg (27.0-31.0); Mean Corpuscular Volume 100.2 fL (78.0-98.0); Platelet Count 200 10x3/uL (130-400); Red Blood Cell (RBC) Count 4.62 mill/uL (4.70-6.10); White Blood Cell (WBC) Count 10.08 10x3/uL (4.8-10.8)
[2024-10-28] MEDS ORDERED: Furosemide 40 MG (4 mL) VIAL ONE (21:00)
[2024-10-28] MEDS ORDERED: Electrolyte Replacement Protocol 1 EACH IVPB PRN (21:13)
[2024-10-28] MEDS ORDERED: Ondansetron PF 4 MG/2 ML Vial IVP PRN (21:13)
[2024-10-28] MEDS ORDERED: Calcium Carbonate 500 MG ChewTAB PO PRN (21:16)
[2024-10-28] MEDS ORDERED: Senokot S 8.6-50 MG TAB PO PRN (21:16)
[2024-10-28 22:57] VITALS: BMI 92.2
[2024-10-29 04:38] LABS: #Basophils 0.04 10x3/uL (0.0-0.2); #Eosinophils 0.05 10x3/uL (0.0-0.7); #Monocytes 0.73 10x3/uL (0.11-0.59); #Neutrophils 5.56 10x3/uL (1.40-6.50); %Basophils 0.6 % (0.0-1.0); %Eosinophils 0.7 % (0.0-10.0); %Lymphocytes 9.3 % (21.0-51.0); %Monocytes 10.3 % (0.0-10.0); %Neutrophils 78.5 % (42.0-75.0); Hematocrit 42.9 % (42.0-52.0); Hemoglobin 11.3 g/dL (14.0-18.0); Mean Corpuscular Hemoglobin 25.3 pg (27.0-31.0); Mean Corpuscular Volume 96.2 fL (78.0-98.0); Platelet Count 171 10x3/uL (130-400); Red Blood Cell (RBC) Count 4.46 mill/uL (4.70-6.10); White Blood Cell (WBC) Count 7.08 10x3/uL (4.8-10.8)
[2024-10-29 04:40] LABS: ALT (SGPT) 14 U/L (Less than 45); AST (SGOT) 30 U/L (11-34); Albumin 3.1 g/dL (3.1-4.5); Alkaline Phosphatase 87 U/L (40-110); Anion Gap 13 mmol/L (10-20); BUN (Urea Nitrogen) 37 mg/dL (8.4-25.7); Bilirubin, Total 0.4 mg/dL (0.3-1.2); Calc. Creatinine Clearance 373 mL/min (70-130); Calcium 8.8 mg/dL (7.8-10.44); Carbon Dioxide 30 mmol/L (22-29); Chloride 101 mmol/L (98-107); Globulin 3.8 g/dL (2.4-3.5); Glucose 90 mg/dL (70-105); Potassium 4.8 mmol/L (3.5-5.1); Sodium 139 mmol/L (136-145)
[2024-10-29 05:09] LABS: Anisocytosis SLIGHT = 6-15 cells HPF (0-5); Macrocytosis SLIGHT = 6-15 cells HPF (0-5); Platelet Adequacy Comment Platelets Normal; Polychromasia SLIGHT = 2-3 cells HPF (0-2)
[2024-10-29] MEDS: Furosemide 40 MG (4 mL) VIAL SLOW IVP SCH (06:33)
[2024-10-29] MEDS ORDERED: Enoxaparin 40 MG (0.4 mL) SYRINGE SC SCH (09:00)
[2024-10-29] MEDS: Famotidine 20 MG TAB PO SCH (09:29)
[2024-10-29] MEDS: Apixaban 5 MG TAB PO SCH (09:29)
[2024-10-29] MEDS: Mupirocin 1 GM TUBE NASAL DECOLONIZATION NASAL SCH (09:29)
[2024-10-29] MEDS: Carvedilol 3.125 MG TAB PO SCH (09:29)
[2024-10-30 04:34] LABS: #Basophils 0.04 10x3/uL (0.0-0.2); #Eosinophils 0.15 10x3/uL (0.0-0.7); #Monocytes 0.52 10x3/uL (0.11-0.59); #Neutrophils 3.90 10x3/uL (1.40-6.50); %Basophils 0.8 % (0.0-1.0); %Eosinophils 2.8 % (0.0-10.0); %Lymphocytes 12.5 % (21.0-51.0); %Monocytes 9.8 % (0.0-10.0); %Neutrophils 73.9 % (42.0-75.0); Hematocrit 39.1 % (42.0-52.0); Hemoglobin 10.6 g/dL (14.0-18.0); Mean Corpuscular Hemoglobin 25.7 pg (27.0-31.0); Mean Corpuscular Volume 94.9 fL (78.0-98.0); Platelet Count 188 10x3/uL (130-400); Red Blood Cell (RBC) Count 4.12 mill/uL (4.70-6.10); White Blood Cell (WBC) Count 5.28 10x3/uL (4.8-10.8)
[2024-10-30 04:48] LABS: ALT (SGPT) 10 U/L (Less than 45); AST (SGOT) 19 U/L (11-34); Albumin 3.1 g/dL (3.1-4.5); Alkaline Phosphatase 83 U/L (40-110); Anion Gap 11 mmol/L (10-20); BUN (Urea Nitrogen) 31 mg/dL (8.4-25.7); Bilirubin, Total 0.5 mg/dL (0.3-1.2); Calc. Creatinine Clearance 448 mL/min (70-130); Calcium 8.8 mg/dL (7.8-10.44); Carbon Dioxide 33 mmol/L (22-29); Chloride 100 mmol/L (98-107); Globulin 3.4 g/dL (2.4-3.5); Glucose 86 mg/dL (70-105); Potassium 4.0 mmol/L (3.5-5.1); Sodium 140 mmol/L (136-145)
[2024-10-30] MEDS: Melatonin 3 MG TAB PO PRN (19:35)
[2024-10-31] MEDS: diphenhydrAMINE 25 MG CAP PO PRN (04:21)
[2024-10-31 04:23] LABS: ALT (SGPT) 11 U/L (Less than 45); AST (SGOT) 21 U/L (11-34); Albumin 3.0 g/dL (3.1-4.5); Alkaline Phosphatase 79 U/L (40-110); Anion Gap 11 mmol/L (10-20); BUN (Urea Nitrogen) 24 mg/dL (8.4-25.7); Bilirubin, Total 0.6 mg/dL (0.3-1.2); Calc. Creatinine Clearance 533 mL/min (70-130); Calcium 8.9 mg/dL (7.8-10.44); Carbon Dioxide 30 mmol/L (22-29); Chloride 104 mmol/L (98-107); Globulin 3.3 g/dL (2.4-3.5); Glucose 98 mg/dL (70-105); Potassium 4.1 mmol/L (3.5-5.1); Sodium 141 mmol/L (136-145)
[2024-10-31 04:25] LABS: #Basophils 0.04 10x3/uL (0.0-0.2); #Eosinophils 0.08 10x3/uL (0.0-0.7); #Monocytes 0.64 10x3/uL (0.11-0.59); #Neutrophils 3.34 10x3/uL (1.40-6.50); %Basophils 0.8 % (0.0-1.0); %Eosinophils 1.7 % (0.0-10.0); %Lymphocytes 15.1 % (21.0-51.0); %Monocytes 13.2 % (0.0-10.0); %Neutrophils 69.0 % (42.0-75.0); Hematocrit 37.1 % (42.0-52.0); Hemoglobin 10.3 g/dL (14.0-18.0); Mean Corpuscular Hemoglobin 25.7 pg (27.0-31.0); Mean Corpuscular Volume 92.5 fL (78.0-98.0); Platelet Count 200 10x3/uL (130-400); Red Blood Cell (RBC) Count 4.01 mill/uL (4.70-6.10); White Blood Cell (WBC) Count 4.84 10x3/uL (4.8-10.8)
[2024-10-31 05:18] LABS: Platelet Adequacy Comment Platelets Normal; Smudge Cells 5.0 %
[2024-11-01 07:33] LABS: ALT (SGPT) 12 U/L (Less than 45); AST (SGOT) 20 U/L (11-34); Albumin 3.0 g/dL (3.1-4.5); Alkaline Phosphatase 84 U/L (40-110); Anion Gap 11 mmol/L (10-20); BUN (Urea Nitrogen) 16 mg/dL (8.4-25.7); Bilirubin, Total 0.5 mg/dL (0.3-1.2); Calc. Creatinine Clearance 491 mL/min (70-130); Calcium 9.0 mg/dL (7.8-10.44); Carbon Dioxide 30 mmol/L (22-29); Chloride 105 mmol/L (98-107); Globulin 3.8 g/dL (2.4-3.5); Glucose 84 mg/dL (70-105); Potassium 4.3 mmol/L (3.5-5.1); Sodium 142 mmol/L (136-145)
[2024-11-01 07:47] LABS: #Basophils 0.04 10x3/uL (0.0-0.2); #Eosinophils 0.06 10x3/uL (0.0-0.7); #Monocytes 0.71 10x3/uL (0.11-0.59); #Neutrophils 4.59 10x3/uL (1.40-6.50); %Basophils 0.7 % (0.0-1.0); %Eosinophils 1.0 % (0.0-10.0); %Lymphocytes 11.4 % (21.0-51.0); %Monocytes 11.6 % (0.0-10.0); %Neutrophils 75.0 % (42.0-75.0); Hematocrit 40.9 % (42.0-52.0); Hemoglobin 11.4 g/dL (14.0-18.0); Mean Corpuscular Hemoglobin 25.4 pg (27.0-31.0); Mean Corpuscular Volume 91.1 fL (78.0-98.0); Platelet Count 225 10x3/uL (130-400); Red Blood Cell (RBC) Count 4.49 mill/uL (4.70-6.10); White Blood Cell (WBC) Count 6.12 10x3/uL (4.8-10.8)
[2024-11-01 08:19] LABS: Anisocytosis SLIGHT = 6-15 cells HPF (0-5); Platelet Adequacy Comment Platelets Normal; Polychromasia MODERATE = 3-4 cells HPF (0-2); Target Cells SLIGHT = 2-5 cells HPF (0-1)
[2024-11-02 05:06] LABS: #Basophils 0.04 10x3/uL (0.0-0.2); #Eosinophils 0.17 10x3/uL (0.0-0.7); #Monocytes 0.78 10x3/uL (0.11-0.59); #Neutrophils 3.88 10x3/uL (1.40-6.50); %Basophils 0.7 % (0.0-1.0); %Eosinophils 3.0 % (0.0-10.0); %Lymphocytes 14.4 % (21.0-51.0); %Monocytes 13.7 % (0.0-10.0); %Neutrophils 67.8 % (42.0-75.0); Hematocrit 39.7 % (42.0-52.0); Hemoglobin 10.9 g/dL (14.0-18.0); Mean Corpuscular Hemoglobin 25.0 pg (27.0-31.0); Mean Corpuscular Volume 91.1 fL (78.0-98.0); Platelet Count 216 10x3/uL (130-400); Red Blood Cell (RBC) Count 4.36 mill/uL (4.70-6.10); White Blood Cell (WBC) Count 5.71 10x3/uL (4.8-10.8)
[2024-11-02 05:08] LABS: ALT (SGPT) 13 U/L (Less than 45); AST (SGOT) 21 U/L (11-34); Albumin 3.0 g/dL (3.1-4.5); Alkaline Phosphatase 84 U/L (40-110); Anion Gap 12 mmol/L (10-20); BUN (Urea Nitrogen) 16 mg/dL (8.4-25.7); Bilirubin, Total 0.6 mg/dL (0.3-1.2); Calc. Creatinine Clearance 474 mL/min (70-130); Calcium 9.0 mg/dL (7.8-10.44); Carbon Dioxide 30 mmol/L (22-29); Chloride 105 mmol/L (98-107); Globulin 3.5 g/dL (2.4-3.5); Glucose 88 mg/dL (70-105); Potassium 4.1 mmol/L (3.5-5.1); Sodium 143 mmol/L (136-145)
[2024-11-02 05:59] LABS: Platelet Adequacy Comment Platelets Normal; Polychromasia SLIGHT = 2-3 cells HPF (0-2); Smudge Cells 13.6 %
[2024-11-03 06:16] LABS: #Basophils 0.04 10x3/uL (0.0-0.2); #Eosinophils 0.19 10x3/uL (0.0-0.7); #Monocytes 0.69 10x3/uL (0.11-0.59); #Neutrophils 4.37 10x3/uL (1.40-6.50); %Basophils 0.6 % (0.0-1.0); %Eosinophils 3.1 % (0.0-10.0); %Lymphocytes 14.2 % (21.0-51.0); %Monocytes 11.1 % (0.0-10.0); %Neutrophils 70.7 % (42.0-75.0); Hematocrit 38.6 % (42.0-52.0); Hemoglobin 11.0 g/dL (14.0-18.0); Mean Corpuscular Hemoglobin 25.2 pg (27.0-31.0); Mean Corpuscular Volume 88.3 fL (78.0-98.0); Platelet Count 226 10x3/uL (130-400); Red Blood Cell (RBC) Count 4.37 mill/uL (4.70-6.10); White Blood Cell (WBC) Count 6.19 10x3/uL (4.8-10.8)
[2024-11-03 06:40] LABS: ALT (SGPT) 16 U/L (Less than 45); AST (SGOT) 26 U/L (11-34); Albumin 2.9 g/dL (3.1-4.5); Alkaline Phosphatase 83 U/L (40-110); Anion Gap 9 mmol/L (10-20); BUN (Urea Nitrogen) 18 mg/dL (8.4-25.7); Bilirubin, Total 0.7 mg/dL (0.3-1.2); Calc. Creatinine Clearance 501 mL/min (70-130); Calcium 9.4 mg/dL (7.8-10.44); Carbon Dioxide 29 mmol/L (22-29); Chloride 105 mmol/L (98-107); Globulin 3.8 g/dL (2.4-3.5); Glucose 83 mg/dL (70-105); Potassium 4.1 mmol/L (3.5-5.1); Sodium 139 mmol/L (136-145)
[2024-11-03 21:32] VITALS: BMI 79.1
[2024-11-04 06:36] LABS: ALT (SGPT) 16 U/L (Less than 45); AST (SGOT) 25 U/L (11-34); Albumin 3.1 g/dL (3.1-4.5); Alkaline Phosphatase 87 U/L (40-110); Anion Gap 11 mmol/L (10-20); BUN (Urea Nitrogen) 16 mg/dL (8.4-25.7); Bilirubin, Total 0.6 mg/dL (0.3-1.2); Calc. Creatinine Clearance 492 mL/min (70-130); Calcium 9.1 mg/dL (7.8-10.44); Carbon Dioxide 25 mmol/L (22-29); Chloride 107 mmol/L (98-107); Globulin 3.5 g/dL (2.4-3.5); Glucose 91 mg/dL (70-105); Potassium 3.8 mmol/L (3.5-5.1); Sodium 139 mmol/L (136-145)
[2024-11-04 06:48] LABS: #Basophils 0.04 10x3/uL (0.0-0.2); #Eosinophils 0.15 10x3/uL (0.0-0.7); #Monocytes 0.69 10x3/uL (0.11-0.59); #Neutrophils 4.11 10x3/uL (1.40-6.50); %Basophils 0.7 % (0.0-1.0); %Eosinophils 2.6 % (0.0-10.0); %Lymphocytes 12.7 % (21.0-51.0); %Monocytes 12.0 % (0.0-10.0); %Neutrophils 71.8 % (42.0-75.0); Hematocrit 40.8 % (42.0-52.0); Hemoglobin 11.7 g/dL (14.0-18.0); Mean Corpuscular Hemoglobin 25.4 pg (27.0-31.0); Mean Corpuscular Volume 88.5 fL (78.0-98.0); Platelet Count 245 10x3/uL (130-400); Red Blood Cell (RBC) Count 4.61 mill/uL (4.70-6.10); White Blood Cell (WBC) Count 5.73 10x3/uL (4.8-10.8)
[2024-11-05 00:53] VITALS: BP 122/76; TEMP 97.8
== END 2024-11-05 01:30 | DRG 205 ==
LOC: ERS 19:30 → CCU 21:04 → T4-A 10-31 10:51
PROVIDERS: ADMIT Internal Medicine; ATTEND Internal Medicine
PROC: 4A03XR1 Measurement of Arterial Saturation, Peripheral, External Approach (ICD-10-PCS; principal; 2024-10-28)
PROC: 5A09357 Assistance with Respiratory Ventilation, Less than 24 Consecutive Hours, Continuous Positive Airway Pressure (ICD-10-PCS; 2024-10-28)
PROC: 5A09357 Assistance with Respiratory Ventilation, Less than 24 Consecutive Hours, Continuous Positive Airway Pressure (ICD-10-PCS; 2024-10-30)
DX: E66.2 Morbid (severe) obesity with alveolar hypoventilation (principal); I50.33 Acute on chronic diastolic (congestive) heart failure; J96.21 Acute and chronic respiratory failure with hypoxia; J96.22 Acute and chronic respiratory failure with hypercapnia; Z68.45 Body mass index [BMI] 70 or greater, adult; I11.0 Hypertensive heart disease with heart failure; E87.5 Hyperkalemia; I48.91 Unspecified atrial fibrillation; E66.1 Drug-induced obesity; Z98.890 Other specified postprocedural states; K59.00 Constipation, unspecified; G89.29 Other chronic pain; G47.00 Insomnia, unspecified; R53.81 Other malaise; Z79.899 Other long term (current) drug therapy
CPT/HCPCS: 36415; 36600; 71045; 80053; 82805; 83605; 83880; 84484; 85025; 87040; 87077; 87149; 93005; 94640; 94660; 96374; 99292; J1940; J7620